=== PATIENT | female | born 1950 | race Hispanic/Latino ===

== ENCOUNTER 2018-03-30 01:07 | Inpatient (IN) | payer MEDICARE ==
[2018-03-30] MEDS ORDERED: NACL 0.9% 500 ML 500 ML IV ONE (01:21)
[2018-03-30] MEDS ORDERED: NACL 0.9% 1000 ML 2,000 ML ONE (01:22)
--- NOTE | 2018-03-30 01:32 | Emergency Department Report ---
- General Chief Complaint: Dyspnea/Respdistress Stated Complaint: SOB Time Seen by Provider: 03/30/18 01:19 Source: EMS Mode of arrival: Stretcher Limitations: Physical Limitation - History of Present Illness Initial Comments: 67-year-old female with history of CAD presents with URI symptoms 1 week. Patient reports productive cough, fever, shortness of breath. MD Complaint: fever, cough -: week(s) (1) Severity: moderate Consistency: constant Improves With: nothing Worsens With: nothing Associated Symptoms: fever, cough, shortness of breath, nausea - Related Data Home Medications Medication Instructions Recorded Confirmed Last Taken ALBUTEROL Inhaler (OR & NICU) 2 puff IH Q4H PRN 12/13/17 03/30/18 03/29/18 [ProAir HFA Inhaler] Aspirin [Adult Aspirin] 81 mg PO DAILY 12/13/17 03/30/18 03/29/18 81mg Metoprolol [Lopressor TAB] 50 mg PO BID 12/13/17 03/30/18 03/29/18 50mg Pantoprazole [Protonix TAB] 40 mg PO QDAY 12/13/17 03/30/18 03/29/18 40mg Topiramate [Topamax] 50 mg PO BID 12/13/17 03/30/18 03/29/18 50mg Venlafaxine HCl [Venlafaxine ER] 150 mg PO QDAY 12/13/17 03/30/18 Unknown buPROPion XL [Wellbutrin XL] 150 mg PO QAM 12/13/17 03/30/18 03/30/18 150mg hydrALAZINE [Apresoline TAB] 25 mg PO QID 12/13/17 03/30/18 Unknown lamoTRIgine [LaMICtal] 200 mg PO QAM 12/13/17 03/30/18 03/29/18 200mg lamoTRIgine [LaMICtal] 400 mg PO HS 12/13/17 03/30/18 Unknown Previous Rx's Medication Instructions Recorded Last Taken Type Clopidogrel [Plavix] 75 mg PO QDAY #30 tablet 12/17/17 03/29/18 Rx 75mg AtorvaSTATin [Lipitor] 40 mg PO QHS #30 tablet 03/05/18 03/29/18 Rx 40mg Fluticasone [Flonase] 100 mcg NS QDAY #1 bottle 03/05/18 03/29/18 Rx 100mcg ISOSORBIDE MONOnitrate [Imdur ER] 60 mg PO QDAY #30 tablet 03/05/18 03/29/18 Rx 60mg Nitroglycerin [Nitrostat] 0.4 mg SL Q5M PRN #30 tablet 03/05/18 Unknown Rx Ranolazine ER [Ranexa ER] 500 mg PO BID #60 tablet 03/05/18 03/29/18 Rx 500mg Allergies Allergy/AdvReac Type Severity Reaction Status Date / Time Sulfa (Sulfonamide Allergy Hives Verified 03/30/18 01:20 Antibiotics) ED Review of Systems ROS: Stated complaint: SOB Other details as noted in HPI Comment: All other systems reviewed and negative Constitutional: fever Respiratory: cough, shortness of breath, wheezing Gastrointestinal: nausea ED Past Medical Hx - Past Medical History Hx Hypertension: Yes Hx Heart Attack/AMI: Yes Hx Congestive Heart Failure: Yes Hx Diabetes: Yes (border line) Hx Deep Vein Thrombosis: No Hx GERD: Yes Hx Liver Disease: No Hx Sickle Cell Disease: No Hx Arthritis: No Hx Headaches / Migraines: Yes Hx Seizures: No Hx Kidney Stones: No Hx Asthma: Yes Hx COPD: No Hx Tuberculosis: No Hx Dementia: No Hx HIV: No - Surgical History Hx Coronary Stent: Yes Hx Open Heart Surgery: No Hx Pacemaker: No Hx Internal Defibrillator: No Hx Cholecystectomy: Yes Hx Appendectomy: Yes Hx Breast Surgery: No Additional Surgical History: appendectomy/ R-leg amputation/ knee replacement/ tonsillectomy/ appendectomy/ ankle reconstruction - Social History Smoking Status: Never Smoker Substance Use Type: None - Medications Home Medications: Home Medications Medication Instructions Recorded Confirmed Last Taken Type ALBUTEROL Inhaler (OR & NICU) 2 puff IH Q4H PRN 12/13/17 03/30/18 03/29/18 History [ProAir HFA Inhaler] Aspirin [Adult Aspirin] 81 mg PO DAILY 12/13/17 03/30/18 03/29/18 History 81mg Metoprolol [Lopressor TAB] 50 mg PO BID 12/13/17 03/30/18 03/29/18 History 50mg Pantoprazole [Protonix TAB] 40 mg PO QDAY 12/13/17 03/30/18 03/29/18 History 40mg Topiramate [Topamax] 50 mg PO BID 12/13/17 03/30/18 03/29/18 History 50mg Venlafaxine HCl [Venlafaxine ER] 150 mg PO QDAY 12/13/17 03/30/18 Unknown History buPROPion XL [Wellbutrin XL] 150 mg PO QAM 12/13/17 03/30/18 03/30/18 History 150mg hydrALAZINE [Apresoline TAB] 25 mg PO QID 12/13/17 03/30/18 Unknown History lamoTRIgine [LaMICtal] 200 mg PO QAM 12/13/17 03/30/18 03/29/18 History 200mg lamoTRIgine [LaMICtal] 400 mg PO HS 12/13/17 03/30/18 Unknown History Clopidogrel [Plavix] 75 mg PO QDAY #30 tablet 12/17/17 03/30/18 03/29/18 Rx 75mg AtorvaSTATin [Lipitor] 40 mg PO QHS #30 tablet 03/05/18 03/30/18 03/29/18 Rx 40mg Fluticasone [Flonase] 100 mcg NS QDAY #1 bottle 03/05/18 03/30/18 03/29/18 Rx 100mcg ISOSORBIDE MONOnitrate [Imdur ER] 60 mg PO QDAY #30 tablet 03/05/18 03/30/18 03/29/18 Rx 60mg Nitroglycerin [Nitrostat] 0.4 mg SL Q5M PRN #30 tablet 03/05/18 03/30/18 Unknown Rx Ranolazine ER [Ranexa ER] 500 mg PO BID #60 tablet 03/05/18 03/30/18 03/29/18 Rx 500mg ED Physical Exam - General Limitations: Physical Limitation General appearance: alert, in no apparent distress - Head Head exam: Present: atraumatic, normocephalic - Eye Eye exam: Present: normal appearance - ENT ENT exam: Present: mucous membranes moist - Neck Neck exam: Present: normal inspection - Respiratory Respiratory exam: Present: respiratory distress (mild), wheezes, other (tachypnea) - Cardiovascular Cardiovascular Exam: Present: regular rate, normal rhythm - GI/Abdominal GI/Abdominal exam: Present: soft. Absent: distended, tenderness - Extremities Exam Extremities exam: Present: other (right BKA present) - Neurological Exam Neurological exam: Present: alert, oriented X3 - Psychiatric Psychiatric exam: Present: normal affect, normal mood - Skin Skin exam: Present: warm, dry, intact, normal color ED Course Vital Signs 03/30/18 03/30/18 03/30/18 01:14 01:15 01:30 Temperature 100.3 F H Pulse Rate 79 62 Pulse Rate [ Bilateral Bases ] Respiratory 24 16 Rate Respiratory Rate [Bilateral Bases] Blood Pressure 153/61 153/61 157/62 O2 Sat by Pulse 95 94 93 Oximetry 03/30/18 03/30/18 03/30/18 01:32 01:33 01:45 Temperature Pulse Rate 61 62 Pulse Rate [ Bilateral Bases ] Respiratory 26 H Rate Respiratory Rate [Bilateral Bases] Blood Pressure 155/54 O2 Sat by Pulse 95 96 Oximetry 03/30/18 03/30/18 03/30/18 02:00 02:05 02:15 Temperature Pulse Rate 66 63 Pulse Rate [ 63 Bilateral Bases ] Respiratory 24 21 Rate Respiratory 15 Rate [Bilateral Bases] Blood Pressure 174/66 155/55 O2 Sat by Pulse 97 97 Oximetry 03/30/18 03/30/18 03/30/18 02:30 02:45 03:00 Temperature Pulse Rate 65 67 74 Pulse Rate [ Bilateral Bases ] Respiratory 26 H 27 H Rate Respiratory Rate [Bilateral Bases] Blood Pressure 164/63 180/57 169/57 O2 Sat by Pulse 98 98 99 Oximetry 03/30/18 03:16 Temperature Pulse Rate 69 Pulse Rate [ Bilateral Bases ] Respiratory 24 Rate Respiratory Rate [Bilateral Bases] Blood Pressure 151/78 O2 Sat by Pulse 94 Oximetry ED Medical Decision Making - Lab Data Result diagrams: 03/30/18 01:33 03/30/18 01:33 - EKG Data -: EKG Interpreted by Ms EKG shows normal: sinus rhythm, axis, intervals, QRS complexes, ST-T waves Rate: normal - EKG Data When compared to previous EKG there are: no significant change Interpretation: other (RBBB) - Radiology Data Radiology results: report reviewed, image reviewed - Medical Decision Making 67-year-old female with wheezing, hypoxia, fever. Since slightly elevated, however chest x-ray negative. Likely bronchitis. Levaquin given. Nebulizer treatment along with Solu-Medrol also given. The much improved. Will admit to hospitalist, Dr Silva. - Differential Diagnosis URI, bronchitis, pneumonia, pulm edema Critical care attestation.: If time is entered above; I have spent that time in minutes in the direct care of this critically ill patient, excluding procedure time. ED Disposition Clinical Impression: Bronchitis, Hypoxia Disposition: OP ADMIT IP TO THIS HOSP Is pt being admited?: Yes Condition: Stable Time of Disposition: 03:04
[2018-03-30] MEDS ORDERED: SOLU-Medrol IV ONE (01:34)
[2018-03-30] MEDS ORDERED: PROVENTIL IH ONE (01:34)
[2018-03-30] MEDS ORDERED: ATROVENT IH ONE (01:34)
--- NOTE | 2018-03-30 01:59 | XRay Report ---
FINAL REPORT EXAM: XR CHEST 1V AP HISTORY: possible Sepsis TECHNIQUE: AP portable view of the chest. PRIORS: 12/18/2017 FINDINGS: The cardiomediastinal silhouette appears normal. The lungs are clear. The bones and soft tissues are unremarkable. IMPRESSION: No evidence of acute cardiopulmonary disease.
[2018-03-30 02:05] LABS: INR 1.15 (0.87-1.13)
[2018-03-30 02:11] LABS: Basophils # (Auto) 0.1 K/mm3 (0.0-0.1); Basophils % (Auto) 1.2 % (0.0-1.8); Eosinophils # (Auto) 0.6 K/mm3 (0.0-0.4); Eosinophils % (Auto) 5.2 % (0.0-4.3); Lymphocytes # (Auto) 1.3 K/mm3 (1.2-5.4); Lymphocytes % (Auto) 10.3 % (13.4-35.0); Mean Corpuscular HGB Conc 29 % (30-34); Mean Corpuscular Volume 71 fl (79-97); Monocytes # (Auto) 0.9 K/mm3 (0.0-0.8); Monocytes % (Auto) 7.3 % (0.0-7.3); Platelet Count 367 K/mm3 (140-440); Red Blood Count 4.02 M/mm3 (3.65-5.03); Red Cell Distribution Width 19.7 % (13.2-15.2)
[2018-03-30 02:12] LABS: Hematocrit 28.6 % (30.3-42.9); Hemoglobin 8.3 gm/dl (10.1-14.3)
[2018-03-30 02:14] LABS: Albumin 3.4 g/dL (3.9-5); Calcium 9.1 mg/dL (8.4-10.2)
[2018-03-30 02:27] LABS: Bilirubin,Urine NEG (Negative); Blood,Urine NEG (Negative); Color,Urine Amber (Yellow); Mucus,Urine FEW /HPF
[2018-03-30] MEDS ORDERED: LEVAQUIN 750MG/150ML 750 MG/150 ML BAG IV ONE (02:49)
[2018-03-30] MEDS ORDERED: ZOFRAN IV ONE (03:02)
[2018-03-30] MEDS ORDERED: ZOFRAN ONE ×2 (03:06→06:17)
[2018-03-30] MEDS ORDERED: ULTRAM ONE (04:29)
[2018-03-30] MEDS ORDERED: ULTRAM PO STA (04:35)
[2018-03-30] MEDS ORDERED: D50W (25GM) Syringe IV PRN (04:45)
[2018-03-30] MEDS ORDERED: NITROSTAT SL PRN (04:47)
[2018-03-30] MEDS ORDERED: SOLU-Medrol ONE ×2 (06:17→06:20)
[2018-03-30] MEDS: SOLU-Medrol IV SCH ×3 (06:25→22:39)
[2018-03-30] MEDS: ZOFRAN IV PRN (06:25)
[2018-03-30 07:00] LABS: Creatine Kinase MB 2.6 ng/mL (0.0-4.0)
--- NOTE | 2018-03-30 08:10 | History and Physical Report ---
CHIEF COMPLAINT: Shortness of breath. OTHER COMPLAINTS: Include cough. HISTORY OF PRESENTING ILLNESS: The patient is a 67-year-old female with past history of CHF, presenting with shortness of breath going on for about 1 week associated with cough and wheezing. The patient stated that cough is productive of [id number] sputum. She has some history of chills and occasional fever. Also, the patient admitted to having shortness of breath, but denied history of chest pain. Denied history of nausea or vomiting and presented for evaluation. PAST MEDICAL HISTORY: Pertinent for hypertension, coronary artery disease, status post myocardial infarction, congestive heart failure, diabetes mellitus, gastroesophageal reflux disease, asthma, and migraine headaches. PAST SURGICAL HISTORY: Pertinent for coronary artery stent placement 10 times. Also, the patient has past surgical history of cholecystectomy, appendectomy, amputation of right leg, and tonsillectomy. FAMILY HISTORY: Noncontributory. SOCIAL HISTORY: The patient does not smoke, does not drink alcohol, and does not use illicit drugs. MEDICATIONS: The patient is on albuterol inhaler 2 puffs every 4 hours as needed for shortness of breath, aspirin 81 mg by mouth daily, metoprolol 50 mg by mouth twice daily, Protonix 40 mg by mouth daily, Topamax 50 mg by mouth twice daily, venlafaxine 150 mg by mouth daily, Wellbutrin 150 mg by mouth in the morning, hydralazine 25 mg by mouth 4 times daily, lamotrigine 200 mg by mouth every morning and 400 mg by mouth in the evening, Plavix 75 mg by mouth daily, Lipitor 40 mg at bedtime, fluticasone or Flonase 100 mcg nasally every day, isosorbide mononitrate 60 mg by mouth daily, nitroglycerin or Nitrostat 0.4 mg sublingual every 5 minutes as needed for chest pain, and ranolazine 500 mg by mouth twice daily. ALLERGIES: THE PATIENT IS ALLERGIC TO SULFA DRUGS. REVIEW OF SYSTEMS: CONSTITUTIONAL: There is fever and there are chills and no diaphoresis. HEENT: There is no headache or sore throat. CARDIOVASCULAR SYSTEM: There is no chest pain or orthopnea. RESPIRATORY SYSTEM: Shortness of breath present. Cough present. Wheezing present. GASTROINTESTINAL SYSTEM: There is no nausea or vomiting. No abdominal pain, diarrhea, or constipation. NEUROLOGICAL SYSTEM: There is no numbness, no dizziness, no altered mental status. MUSCULOSKELETAL SYSTEM: There is no joint pain or swelling. DERMATOLOGICAL SYSTEM: There is no skin rash or itching. GENITOURINARY SYSTEM: There is no dysuria, hematuria, or flank pain. Rest of system review is normal. PHYSICAL EXAMINATION: GENERAL: At the time of exam, the patient was found to be alert, oriented x 3, and in mild distress due to shortness of breath. VITAL SIGNS: At the initial time of presentation showed temperature of 100.3 degrees Fahrenheit, pulse of 79, respirations 24, blood pressure 153/61, O2 sat of 95% on room air. HEENT: Showed pupils to be equal, round, reactive to light and accommodation. Extraocular muscles were intact. NECK: Supple with no JVD or carotid bruit. CARDIOVASCULAR SYSTEM: Showed normal first and second heart sounds with no gallops or murmurs. RESPIRATORY SYSTEM: Showed good air entry on both sides of the lungs with inspiratory wheezing, but no use of accessory respiratory muscles. GASTROINTESTINAL SYSTEM: Showed abdomen to be full, soft, nontender with no organomegaly or rigidity. MUSCULOSKELETAL SYSTEM: Showed no joint swelling or tenderness and the right leg had amputation below the knee. DERMATOLOGICAL SYSTEM: Showed no skin rash. GENITOURINARY SYSTEM: Showed no costovertebral angle tenderness. PERTINENT LABORATORY AND IMAGING STUDIES: The patient had chest x-ray done that came back showing no acute cardiopulmonary lesion. CBC shows elevated white count of 12,200 with low hemoglobin of 8.3 and low hematocrit of 28.6 with low MCV of 71. CBC differential shows elevated eosinophil count of 5.2% and elevated segmented neutrophils of 76%. Coagulation studies show elevated PT of 15.1 with unremarkable INR of 1.15. The patient's venous blood gas show a low value of 7.31. Chemistry shows low sodium of 136 with normal potassium, normal chloride, and low CO2 of 19 with rest of chemistry showing elevated alkaline phosphatase of 214 and elevated brain natriuretic peptide level of 4219 and slightly decreased albumin level of 3.4. The patient's urinalysis was unremarkable. DIAGNOSES: 1. Acute bronchitis. 2. Congestive heart failure exacerbation. 3. Anemia. PLAN OF ACTION: 1. The patient will be admitted to telemetry. 2. The patient will have cardiac enzyme involving troponin, total CK and CK-MB check q. 6 hours x 2 more levels. 3. The patient will have 2D echo done in the morning. 4. The patient will be on albuterol nebulizer 2.5 mg every 6 hours as needed for shortness of breath and will be on IV Levaquin 750 mg daily. 5. The patient will be on IV Solu-Medrol 60 mg q. 8 hours. 6. The patient will be on Robitussin liquid 200 mg every 4 hours as needed for cough. 7. The patient will be on p.r.n. medications like Tylenol 650 mg every 4 hours orally for fever and headache and will also be on IV Zofran 4 mg every 8 hours as needed for nausea and vomiting. 8. The patient will be on Lasix 40 mg IV daily for treatment of CHF exacerbation. 9. The patient will be on heparin 5000 units subcutaneous q. 12 hours for DVT prophylaxis and will be on her home medications as shown in the medication reconciliation section. 10. The patient will be on oxygen by nasal cannula at 2 liters per minute. 11. The patient will be on Accu-Cheks a.c. and at bedtime followed by low-dose sliding scale using Regular insulin covering and the patient's diet will be consistent carbohydrate, 2 g sodium diet. JOB# [id number] OCN/NTS
[2018-03-30 08:29] LABS: Chol/HDL Ratio 2.89 %
[2018-03-30] MEDS: WELLBUTRIN XL PO SCH (10:03)
[2018-03-30] MEDS: LaMICtal PO SCH ×2 (10:03→22:39)
[2018-03-30] MEDS: PLAVIX PO SCH (10:03)
[2018-03-30] MEDS: PROTONIX PO SCH (10:04)
[2018-03-30] MEDS: TOPAMAX PO SCH ×2 (10:04→22:38)
[2018-03-30] MEDS: LOPRESSOR PO SCH ×2 (10:04→17:48)
[2018-03-30] MEDS: HALFPRIN EC PO SCH (10:05)
[2018-03-30] MEDS: HEPARIN SUB-Q SCH ×2 (10:05→22:40)
[2018-03-30] MEDS: IMDUR PO SCH (10:05)
[2018-03-30] MEDS: APRESOLINE PO SCH ×3 (10:05→17:48)
[2018-03-30] MEDS: LASIX IV SCH (10:05)
[2018-03-30] MEDS: HumuLIN R SUB-Q SCH ×4 (10:06→22:38)
[2018-03-30] MEDS: LEVAQUIN 750MG/150ML 750 MG/150 ML BAG IV SCH (10:06)
--- NOTE | 2018-03-30 12:16 | Event Note ---
Date: 03/30/18 Patient seen and examined and medical records reviewed Worsening shortness of breath, acute bronchitis, possible congestive heart failure Follow-up echocardiogram and ejection fraction, agree with the current management
[2018-03-30] MEDS: EFFEXOR XR PO SCH (13:03)
[2018-03-30] MEDS: RANEXA ER PO SCH ×2 (13:03→22:39)
[2018-03-30 14:38] LABS: Creatine Kinase MB 5.3 ng/mL (0.0-4.0)
[2018-03-30] MEDS: ROBITUSSIN PO PRN (18:02)
[2018-03-31] MEDS: APRESOLINE PO SCH ×5 (00:15→22:57)
[2018-03-31 03:53] LABS: BUN/Creatinine Ratio 19; Blood Urea Nitrogen 17 mg/dL (7-17); Calcium 9.5 mg/dL (8.4-10.2); Hemolysis Index 2
[2018-03-31 04:11] LABS: Mean Corpuscular HGB Conc 30 % (30-34); Platelet Count 395 K/mm3 (140-440); Red Blood Count 3.98 M/mm3 (3.65-5.03); Red Cell Distribution Width 19.6 % (13.2-15.2)
[2018-03-31 04:16] LABS: Hematocrit 27.6 % (30.3-42.9); Hemoglobin 8.2 gm/dl (10.1-14.3); Mean Corpuscular Volume 69 fl (79-97)
[2018-03-31] MEDS: SOLU-Medrol IV SCH ×3 (06:01→22:57)
[2018-03-31] MEDS: ROBITUSSIN PO PRN ×3 (06:07→16:42)
[2018-03-31 06:10] LABS: Basophils % (Manual) 0 % (0.0-1.8); Eosinophils % (Manual) 0 % (0.0-4.3); Total Cells Counted 100
[2018-03-31 06:11] LABS: Anisocytosis 1+; Hypochromasia 1+; Large Platelets Few
[2018-03-31] MEDS: HumuLIN R SUB-Q SCH ×4 (08:47→22:57)
[2018-03-31] MEDS: LASIX IV SCH (08:47)
--- NOTE | 2018-03-31 09:36 | Progress Note ---
Assessment and Plan Assessment and plan: 67-year-old female patient with multiple medical problems including multivessel coronary artery disease status post PCI stents, hypertension congestive heart failure diabetes was admitted through emergency room yesterday with worsening shortness of breath and upper respiratory symptoms, evaluation including acute bronchitis, on appropriate management,Today c/o chest pain,will consult cardiology --Acute bronchitis; upper respiratory symptoms Bronchodilators, empiric antibiotics, cough medicine and supportive care antihistamines, --History of multivessel coronary artery disease status post PCI; Continue current cardiac medications, patient c/o chest pain today Cardiology consult requested --Anemia; chronic, closely monitor H&H and transfuse as needed --Dyslipidemia continue statin; --GERD; Protonix --History of seizure disorder; seizure precautions, continue antiepileptic medications --History of depression; stable on antidepression medications --DVT prophylaxis; Lovenox Disposition; follow clinically, improvement consult pulmonary Discharge in 1-2 days if stable History Interval history: Patient seen and examined medical records reviewed Admitted with upper respiratory symptoms and acute bronchitis Patient feels slightly better still has cough and congestion Complaints of chest pain Vital signs noted Hospitalist Physical - Constitutional Vitals: Temp Pulse Resp BP Pulse Ox 97.8 F 68 18 121/45 97 03/31/18 05:53 03/31/18 05:53 03/31/18 05:53 03/31/18 05:53 03/31/18 09:21 General appearance: Present: mild distress, well-nourished - EENT Eyes: Present: PERRL, EOM intact - Neck Neck: Present: supple, normal ROM - Respiratory Respiratory effort: normal Respiratory: bilateral: diminished, rhonchi, negative: rales, wheezing - Cardiovascular Rhythm: regular Heart Sounds: Present: S1 & S2 - Extremities Extremities: no ischemia, No edema - Abdominal General gastrointestinal: soft, non-tender, non-distended, normal bowel sounds - Integumentary Integumentary: Present: clear, warm - Psychiatric Psychiatric: appropriate mood/affect, cooperative - Neurologic Neurologic: CNII-XII intact, moves all extremities Results - Labs CBC & Chem 7: 03/31/18 02:42 03/31/18 02:42 Labs: Laboratory Last Values WBC 15.2 K/mm3 (4.5-11.0) H 03/31/18 02:42 RBC 3.98 M/mm3 (3.65-5.03) 03/31/18 02:42 Hgb 8.2 gm/dl (10.1-14.3) L 03/31/18 02:42 Hct 27.6 % (30.3-42.9) L 03/31/18 02:42 MCV 69 fl (79-97) L 03/31/18 02:42 MCH 21 pg (28-32) L 03/31/18 02:42 MCHC 30 % (30-34) 03/31/18 02:42 RDW 19.6 % (13.2-15.2) H 03/31/18 02:42 Plt Count 395 K/mm3 (140-440) 03/31/18 02:42 Lymph % (Auto) Printer Floor Covering Assistant 03/31/18 02:42 Saunders % (Auto) Printer Floor Covering Assistant 03/31/18 02:42 Eos % (Auto) Printer Floor Covering Assistant 03/31/18 02:42 Baso % (Auto) Printer Floor Covering Assistant 03/31/18 02:42 Lymph # Printer Floor Covering Assistant 03/31/18 02:42 Saunders # Printer Floor Covering Assistant 03/31/18 02:42 Eos # Printer Floor Covering Assistant 03/31/18 02:42 Baso # Printer Floor Covering Assistant 03/31/18 02:42 Add Manual Diff Complete 03/31/18 02:42 Total Counted 100 03/31/18 02:42 Seg Neutrophils % Printer Floor Covering Assistant 03/31/18 02:42 Seg Neuts % (Manual) 95.0 % (40.0-70.0) H 03/31/18 02:42 Band Neutrophils % 0 % 03/31/18 02:42 Lymphocytes % (Manual) 3.0 % (13.4-35.0) L 03/31/18 02:42 Reactive Lymphs % (Man) 0 % 03/31/18 02:42 Monocytes % (Manual) 2.0 % (0.0-7.3) 03/31/18 02:42 Eosinophils % (Manual) 0 % (0.0-4.3) 03/31/18 02:42 Basophils % (Manual) 0 % (0.0-1.8) 03/31/18 02:42 Metamyelocytes % 0 % 03/31/18 02:42 Myelocytes % 0 % 03/31/18 02:42 Promyelocytes % 0 % 03/31/18 02:42 Blast Cells % 0 % 03/31/18 02:42 Nucleated RBC % Not Reportable 03/31/18 02:42 Seg Neutrophils # Printer Floor Covering Assistant 03/31/18 02:42 Seg Neutrophils # Man 14.4 K/mm3 (1.8-7.7) H 03/31/18 02:42 Band Neutrophils # 0.0 K/mm3 03/31/18 02:42 Lymphocytes # (Manual) 0.5 K/mm3 (1.2-5.4) L 03/31/18 02:42 Abs React Lymphs (Man) 0.0 K/mm3 03/31/18 02:42 Monocytes # (Manual) 0.3 K/mm3 (0.0-0.8) 03/31/18 02:42 Eosinophils # (Manual) 0.0 K/mm3 (0.0-0.4) 03/31/18 02:42 Basophils # (Manual) 0.0 K/mm3 (0.0-0.1) 03/31/18 02:42 Metamyelocytes # 0.0 K/mm3 03/31/18 02:42 Myelocytes # 0.0 K/mm3 03/31/18 02:42 Promyelocytes # 0.0 K/mm3 03/31/18 02:42 Blast Cells # 0.0 K/mm3 03/31/18 02:42 WBC Morphology Not Reportable 03/31/18 02:42 Hypersegmented Neuts Not Reportable 03/31/18 02:42 Hyposegmented Neuts Not Reportable 03/31/18 02:42 Hypogranular Neuts Not Reportable 03/31/18 02:42 Smudge Cells Not Reportable 03/31/18 02:42 Toxic Granulation Not Reportable 03/31/18 02:42 Toxic Vacuolation Not Reportable 03/31/18 02:42 Dohle Bodies Not Reportable 03/31/18 02:42 Pelger-Huet Anomaly Not Reportable 03/31/18 02:42 Da Rods Not Reportable 03/31/18 02:42 Platelet Estimate Appears normal 03/31/18 02:42 Clumped Platelets Not Reportable 03/31/18 02:42 Plt Clumps, EDTA Not Reportable 03/31/18 02:42 Large Platelets Few 03/31/18 02:42 Giant Platelets Not Reportable 03/31/18 02:42 Platelet Satelliting Not Reportable 03/31/18 02:42 Plt Morphology Comment Not Reportable 03/31/18 02:42 RBC Morphology Not Reportable 03/31/18 02:42 Dimorphic RBCs Not Reportable 03/31/18 02:42 Polychromasia Few 03/31/18 02:42 Hypochromasia 1+ 03/31/18 02:42 Poikilocytosis Not Reportable 03/31/18 02:42 Anisocytosis 1+ 03/31/18 02:42 Microcytosis Not Reportable 03/31/18 02:42 Macrocytosis Not Reportable 03/31/18 02:42 Spherocytes Not Reportable 03/31/18 02:42 Pappenheimer Bodies Not Reportable 03/31/18 02:42 Sickle Cells Not Reportable 03/31/18 02:42 Target Cells Not Reportable 03/31/18 02:42 Tear Drop Cells Not Reportable 03/31/18 02:42 Ovalocytes Not Reportable 03/31/18 02:42 Helmet Cells Not Reportable 03/31/18 02:42 [place] Bodies Not Reportable 03/31/18 02:42 [place] Rings Not Reportable 03/31/18 02:42 Urvashi Cells Not Reportable 03/31/18 02:42 Bite Cells Not Reportable 03/31/18 02:42 Crenated Cell Not Reportable 03/31/18 02:42 Elliptocytes Not Reportable 03/31/18 02:42 Acanthocytes (Spur) Not Reportable 03/31/18 02:42 Rouleaux Not Reportable 03/31/18 02:42 Hemoglobin C Crystals Not Reportable 03/31/18 02:42 Schistocytes Not Reportable 03/31/18 02:42 Malaria parasites Not Reportable 03/31/18 02:42 Aashish Bodies Not Reportable 03/31/18 02:42 Hem Pathologist Commnt No 03/31/18 02:42 PT 15.1 Sec. (12.2-14.9) H 03/30/18 01:33 INR 1.15 (0.87-1.13) H 03/30/18 01:33 VBG pH 7.313 (7.320-7.420) L 03/30/18 01:33 Sodium 136 mmol/L (137-145) L 03/31/18 02:42 Potassium 4.4 mmol/L (3.6-5.0) 03/31/18 02:42 Chloride 106.8 mmol/L (98-107) 03/31/18 02:42 Carbon Dioxide 20 mmol/L (22-30) L 03/31/18 02:42 Anion Gap 14 mmol/L 03/31/18 02:42 BUN 17 mg/dL (7-17) 03/31/18 02:42 Creatinine 0.9 mg/dL (0.7-1.2) 03/31/18 02:42 Estimated GFR > 60 ml/min 03/31/18 02:42 BUN/Creatinine Ratio 19 % 03/31/18 02:42 Glucose 142 mg/dL (65-100) H 03/31/18 02:42 POC Glucose 178 (70-105) H 03/31/18 08:21 Lactic Acid 1.90 mmol/L (0.7-2.0) 03/30/18 05:51 Calcium 9.5 mg/dL (8.4-10.2) 03/31/18 02:42 Total Bilirubin 0.20 mg/dL (0.1-1.2) 03/30/18 01:33 AST 9 units/L (5-40) 03/30/18 01:33 ALT 6 units/L (7-56) L 03/30/18 01:33 Alkaline Phosphatase 214 units/L (35-129) H 03/30/18 01:33 Total Creatine Kinase 144 units/L (30-135) H 03/30/18 12:31 CK-MB (CK-2) 5.3 ng/mL (0.0-4.0) H 03/30/18 12:31 CK-MB (CK-2) Rel Index 3.6 (0-4) 03/30/18 12:31 Troponin T 0.057 ng/mL (0.00-0.029) H D 03/30/18 12:31 NT-Pro-B Natriuret Pep 4219 pg/mL (0-900) H 03/30/18 01:35 Total Protein 7.0 g/dL (6.3-8.2) 03/30/18 01:33 Albumin 3.4 g/dL (3.9-5) L 03/30/18 01:33 Albumin/Globulin Ratio 0.9 % 03/30/18 01:33 Triglycerides 97 mg/dL (2-149) 03/30/18 05:51 Cholesterol 133 mg/dL (50-199) 03/30/18 05:51 LDL Cholesterol Direct 80 mg/dL (50-130) 03/30/18 05:51 HDL Cholesterol 46 mg/dL (40-59) 03/30/18 05:51 Cholesterol/HDL Ratio 2.89 % 03/30/18 05:51 Urine Color Kitty (Yellow) 03/30/18 02:10 Urine Turbidity Clear (Clear) 03/30/18 02:10 Urine pH 5.0 (5.0-7.0) 03/30/18 02:10 Ur Specific [place] 1.024 (1.003-1.030) 03/30/18 02:10 Urine Protein 30 mg/dl mg/dL (Negative) 03/30/18 02:10 Urine Glucose (UA) Neg mg/dL (Negative) 03/30/18 02:10 Urine Ketones Neg mg/dL (Negative) 03/30/18 02:10 Urine Blood Neg (Negative) 03/30/18 02:10 Urine Nitrite Neg (Negative) 03/30/18 02:10 Urine Bilirubin Neg (Negative) 03/30/18 02:10 Urine Urobilinogen 2.0 mg/dL (<2.0) 03/30/18 02:10 Ur Leukocyte Esterase Neg (Negative) 03/30/18 02:10 Urine WBC (Auto) 2.0 /HPF (0.0-6.0) 03/30/18 02:10 Urine RBC (Auto) 2.0 /HPF (0.0-6.0) 03/30/18 02:10 Urine Mucus Few /HPF 03/30/18 02:10
[2018-03-31] MEDS: LOPRESSOR PO SCH ×2 (10:17→16:59)
[2018-03-31] MEDS: LEVAQUIN 750MG/150ML 750 MG/150 ML BAG IV SCH (10:17)
[2018-03-31] MEDS: EFFEXOR XR PO SCH (10:18)
[2018-03-31] MEDS: TYLENOL PO PRN (10:18)
[2018-03-31] MEDS: LaMICtal PO SCH ×2 (10:19→22:58)
[2018-03-31] MEDS: IMDUR PO SCH (10:19)
[2018-03-31] MEDS: RANEXA ER PO SCH ×2 (10:21→22:57)
[2018-03-31] MEDS: HALFPRIN EC PO SCH (10:21)
[2018-03-31] MEDS: PLAVIX PO SCH (10:21)
[2018-03-31] MEDS: PROTONIX PO SCH (10:21)
[2018-03-31] MEDS: HEPARIN SUB-Q SCH ×2 (10:21→23:04)
[2018-03-31] MEDS: WELLBUTRIN XL PO SCH (10:21)
[2018-03-31] MEDS: TOPAMAX PO SCH ×2 (10:34→22:57)
--- NOTE | 2018-03-31 14:23 | Consultation ---
History of Present Illness Consult date: 03/31/18 Consult reason: shortness of breath History of present illness: 67-year-old woman with multivessel coronary artery disease status post two- vessel coronary stenting in the past several months, on medical therapy for chronic stable angina pectoris. Presents to the hospital now with fever and cough and hoarseness. There was musculoskeletal type chest pain following repeated bouts of coughing. In the emergency room, temperature was 100.3, and white count was 15,000. Chest x-ray is negative for infiltrates or interstitial edema. EKG was a sinus rhythm, right bundle branch block, no acute ST or T-wave changes. Past History Past Medical History: CAD Past Surgical History: PTCA Medications and Allergies Allergies Allergy/AdvReac Type Severity Reaction Status Date / Time Sulfa (Sulfonamide Allergy Hives Verified 03/30/18 01:20 Antibiotics) Home Medications Medication Instructions Recorded Confirmed Last Taken Type ALBUTEROL Inhaler (OR & NICU) 2 puff IH Q4H PRN 12/13/17 03/30/18 03/29/18 History [ProAir HFA Inhaler] Aspirin [Adult Aspirin] 81 mg PO DAILY 12/13/17 03/30/18 03/29/18 History 81mg Metoprolol [Lopressor TAB] 50 mg PO BID 12/13/17 03/30/18 03/29/18 History 50mg Pantoprazole [Protonix TAB] 40 mg PO QDAY 12/13/17 03/30/18 03/29/18 History 40mg Topiramate [Topamax] 50 mg PO BID 12/13/17 03/30/18 03/29/18 History 50mg Venlafaxine HCl [Venlafaxine ER] 150 mg PO QDAY 12/13/17 03/30/18 Unknown His tory buPROPion XL [Wellbutrin XL] 150 mg PO QAM 12/13/17 03/30/18 03/30/18 History 150mg hydrALAZINE [Apresoline TAB] 25 mg PO QID 12/13/17 03/30/18 Unknown History lamoTRIgine [LaMICtal] 200 mg PO QAM 12/13/17 03/30/18 03/29/18 History 200mg lamoTRIgine [LaMICtal] 400 mg PO HS 12/13/17 03/30/18 Unknown History Clopidogrel [Plavix] 75 mg PO QDAY #30 tablet 12/17/17 03/30/18 03/29/18 Rx 75mg AtorvaSTATin [Lipitor] 40 mg PO QHS #30 tablet 03/05/18 03/30/18 03/29/18 Rx 40mg Fluticasone [Flonase] 100 mcg NS QDAY #1 bottle 03/05/18 03/30/18 03/29/18 Rx 100mcg ISOSORBIDE MONOnitrate [Imdur ER] 60 mg PO QDAY #30 tablet 03/05/18 03/30/18 03/29/18 Rx 60mg Nitroglycerin [Nitrostat] 0.4 mg SL Q5M PRN #30 tablet 03/05/18 03/30/18 Unknown Rx Ranolazine ER [Ranexa ER] 500 mg PO BID #60 tablet 03/05/18 03/30/18 03/29/18 Rx 500mg Active Meds: Active Medications Acetaminophen (Tylenol) 650 mg PO Q4H PRN PRN Reason: Fever >101 Last Admin: 03/31/18 10:18 Dose: 650 mg Documented by: Albuterol (Proventil) 2.5 mg IH Q6HRT PRN PRN Reason: Shortness Of Breath Aspirin (Halfprin Ec) 81 mg PO DAILY [facility] Last Admin: 03/31/18 10:21 Dose: 81 mg Documented by: Atorvastatin Calcium (Lipitor) 40 mg PO QHS [facility] Last Admin: 03/30/18 22:39 Dose: 40 mg Documented by: Bupropion HCl (Wellbutrin Xl) 150 mg PO QAM [facility] Last Admin: 03/31/18 10:21 Dose: 150 mg Documented by: Clopidogrel Bisulfate (Plavix) 75 mg PO QDAY [facility] Last Admin: 03/31/18 10:21 Dose: 75 mg Documented by: Dextrose (D50w (25gm) Syringe) 50 ml IV PRN PRN PRN Reason: Hypoglycemia Furosemide (Lasix) 40 mg IV QDAY@0800 [facility] Last Admin: 03/31/18 08:47 Dose: 40 mg Documented by: Guaifenesin (Robitussin) 200 mg PO Q4H PRN PRN Reason: Cough Last Admin: 03/31/18 10:17 Dose: 200 mg Documented by: Heparin Sodium (Porcine) (Heparin) 5,000 unit SUB-Q Q12HR [facility] Last Admin: 03/31/18 10:21 Dose: 5,000 unit Documented by: Hydralazine HCl (Apresoline) 25 mg PO QID [facility] Last Admin: 03/31/18 13:53 Dose: 25 mg Documented by: Insulin Human Regular (Humulin R) 0 units SUB-Q AC [facility]; Protocol Last Admin: 03/31/18 13:52 Dose: 2 units Documented by: Insulin Human Regular (Humulin R) 0 units SUB-Q QHS [facility]; Protocol Last Admin: 03/30/18 22:38 Dose: 1 units Documented by: Isosorbide Mononitrate (Imdur) 60 mg PO QDAY [facility] Last Admin: 03/31/18 10:19 Dose: 60 mg Documented by: Lamotrigine (Lamictal) 200 mg PO QAM [facility] Last Admin: 03/31/18 10:19 Dose: 200 mg Documented by: Lamotrigine (Lamictal) 400 mg PO HS [facility] Last Admin: 03/30/18 22:39 Dose: 400 mg Documented by: Levofloxacin (Levaquin) 750 mg PO DAILY [facility] Loratadine/Pseudoephedrine Sulfate (Claritin-D 24hr) 1 each PO Q24HR [facility] Methylprednisolone Sodium Succinate (Solu-Medrol) 60 mg IV Q8HR [facility] Last Admin: 03/31/18 13:53 Dose: 60 mg Documented by: Metoprolol Tartrate (Lopressor) 50 mg PO BID@0800,1700 [facility] Last Admin: 03/31/18 10:17 Dose: 50 mg Documented by: Nitroglycerin (Nitrostat) 0.4 mg SL Q5M PRN PRN Reason: Chest Pain Ondansetron HCl (Zofran) 4 mg IV Q8H PRN PRN Reason: Nausea And Vomiting Last Admin: 03/30/18 06:25 Dose: 4 mg Documented by: Pantoprazole Sodium (Protonix) 40 mg PO QDAY [facility] Last Admin: 03/31/18 10:21 Dose: 40 mg Documented by: Ranolazine (Ranexa Er) 500 mg PO BID [facility] Last Admin: 03/31/18 10:21 Dose: 500 mg Documented by: Topiramate (Topamax) 50 mg PO BID [facility] Last Admin: 03/31/18 10:34 Dose: 50 mg Documented by: Venlafaxine HCl (Effexor Xr) 150 mg PO QDAY [facility] Last Admin: 03/31/18 10:18 Dose: 150 mg Documented by: Review of Systems Cardiovascular: chest pain, no orthopnea, no palpitations, no rapid/irregular heart beat, no edema, no syncope, no lightheadedness, no shortness of breath Respiratory: cough Physical Examination Vital Signs Temp Pulse Resp BP Pulse Ox 100.3 F H 79 24 153/61 92 03/30/18 01:14 03/30/18 01:14 03/30/18 01:14 03/30/18 01:14 03/30/18 01:14 General appearance: no acute distress HEENT: Positive: PERRL Neck: Positive: neck supple Cardiac: Positive: Reg Rate and Rhythm Lungs: Positive: Decreased Breath Sounds Neuro: Positive: Grossly Intact Abdomen: Positive: Soft Female genitourinary: deferred Skin: Positive: Clear Extremities: Absent: edema Results 03/31/18 02:42 03/31/18 02:42 Cardiac Enzymes 03/30/18 Range/Units 12:31 CK-MB (CK-2) 5.3 H (0.0-4.0) ng/mL CBC 03/31/18 Range/Units 02:42 WBC 15.2 H (4.5-11.0) K/mm3 RBC 3.98 (3.65-5.03) M/mm3 Hgb 8.2 L (10.1-14.3) gm/dl Hct 27.6 L (30.3-42.9) % Plt Count 395 (140-440) K/mm3 Lymph # [employer] Dyer # [employer] Eos # [employer] Baso # [employer] Comprehensive Metabolic Panel 03/31/18 Range/Units 02:42 Sodium 136 L (137-145) mmol/L Potassium 4.4 (3.6-5.0) mmol/L Chloride 106.8 (98-107) mmol/L Carbon Dioxide 20 L (22-30) mmol/L BUN 17 (7-17) mg/dL Creatinine 0.9 (0.7-1.2) mg/dL Glucose 142 H (65-100) mg/dL Calcium 9.5 (8.4-10.2) mg/dL EKG interpretations - Telemetry EKG Rhythm: Sinus Rhythm (with right bundle branch block) Assessment and Plan - Patient Problems (1) Chest pain Current Visit: No Status: Acute Plan to address problem: Patient has musculoskeletal chest pain which occurred after repeated bouts of coughing. Primary clinical problem is acute bronchitis with fever, elevated white count and hoarseness of voice. We will defer to internal medicine for appropriate antibiotic therapy. (2) Coronary artery disease Current Visit: Yes Status: Acute Plan to address problem: Patient has multivessel coronary artery disease, on medical therapy including dual oral antiplatelet therapy following two-vessel coronary intervention in the past several months.
[2018-03-31] MEDS: CLARITIN-D 24HR PO SCH (16:39)
[2018-04-01] MEDS: ROBITUSSIN PO PRN ×2 (03:03→09:33)
[2018-04-01] MEDS: SOLU-Medrol IV SCH ×3 (05:52→21:56)
[2018-04-01 06:13] LABS: Mean Corpuscular HGB Conc 29 % (30-34); Platelet Count 482 K/mm3 (140-440); Red Blood Count 4.03 M/mm3 (3.65-5.03)
[2018-04-01 06:14] LABS: Hematocrit 27.8 % (30.3-42.9); Hemoglobin 8.2 gm/dl (10.1-14.3); Mean Corpuscular Volume 69 fl (79-97); Red Cell Distribution Width 20.3 % (13.2-15.2)
[2018-04-01 06:51] LABS: Calcium 9.3 mg/dL (8.4-10.2)
[2018-04-01 08:29] LABS: Anisocytosis 1+; Basophils % (Manual) 0 % (0.0-1.8); Eosinophils % (Manual) 0 % (0.0-4.3); Total Cells Counted 100
[2018-04-01 08:30] LABS: Hypochromasia 2+; Platelet Estimate Consistent w Auto
[2018-04-01] MEDS: LASIX IV SCH (09:34)
[2018-04-01] MEDS: HEPARIN SUB-Q SCH ×2 (09:34→21:55)
[2018-04-01] MEDS: IMDUR PO SCH (09:34)
[2018-04-01] MEDS: HALFPRIN EC PO SCH (09:34)
[2018-04-01] MEDS: LOPRESSOR PO SCH ×2 (09:35→17:07)
[2018-04-01] MEDS: PROTONIX PO SCH (09:35)
[2018-04-01] MEDS: LaMICtal PO SCH ×2 (09:35→21:56)
[2018-04-01] MEDS: APRESOLINE PO SCH ×4 (09:35→21:59)
[2018-04-01] MEDS: EFFEXOR XR PO SCH (09:36)
[2018-04-01] MEDS: PLAVIX PO SCH (09:36)
[2018-04-01] MEDS: RANEXA ER PO SCH ×2 (09:36→22:10)
[2018-04-01] MEDS: WELLBUTRIN XL PO SCH (09:37)
[2018-04-01] MEDS: HumuLIN R SUB-Q SCH ×4 (09:38→21:58)
[2018-04-01] MEDS ORDERED: LEVAQUIN PO SCH (10:00)
[2018-04-01] MEDS: TOPAMAX PO SCH ×2 (11:15→21:55)
--- NOTE | 2018-04-01 12:06 | Progress Note ---
Assessment and Plan - Patient Problems (1) Chest pain Current Visit: No Status: Acute Plan to address problem: Patient has musculoskeletal chest pain which occurred after repeated bouts of coughing. Primary clinical problem is acute bronchitis with fever, elevated white count and hoarseness of voice. We will defer to internal medicine for appropriate antibiotic therapy. (2) Coronary artery disease Current Visit: Yes Status: Acute Plan to address problem: Patient has multivessel coronary artery disease, on medical therapy including dual oral antiplatelet therapy following two-vessel coronary intervention in recent months. Subjective Date of service: 04/01/18 Interval history: Patient looks and feels better, no chest pain, cough and shortness of breath improving. On exam, she has rhonchi localized to the right lung base. Objective Vital Signs Temp Pulse Resp Resp Resp Resp BP 04/01/18 09:35 122/47 04/01/18 09:34 122/47 04/01/18 08:43 04/01/18 04:46 97.7 F 70 18 135/59 03/31/18 23:01 97.8 F 69 18 136/54 03/31/18 22:57 68 136/54 03/31/18 22:00 18 18 18 18 03/31/18 19:10 03/31/18 17:00 128/60 03/31/18 16:59 128/60 03/31/18 16:31 97.4 F L 81 22 107/53 03/31/18 13:53 135/57 Pulse Ox 04/01/18 09:35 04/01/18 09:34 04/01/18 08:43 98 04/01/18 04:46 98 03/31/18 23:01 99 03/31/18 22:57 03/31/18 22:00 99 03/31/18 19:10 98 03/31/18 17:00 03/31/18 16:59 03/31/18 16:31 97 03/31/18 13:53 - Physical Examination General: No Apparent Distress HEENT: Positive: PERRL Neck: Positive: neck supple Cardiac: Positive: Reg Rate and Rhythm Lungs: Positive: Rhonchi Neuro: Positive: Grossly Intact Abdomen: Positive: Soft Skin: Positive: Clear Extremities: Absent: edema - Labs and Meds CBC 04/01/18 Range/Units 05:21 WBC 16.0 H (4.5-11.0) K/mm3 RBC 4.03 (3.65-5.03) M/mm3 Hgb 8.2 L (10.1-14.3) gm/dl Hct 27.8 L (30.3-42.9) % Plt Count 482 H (140-440) K/mm3 Comprehensive Metabolic Panel 04/01/18 Range/Units 05:21 Sodium 138 (137-145) mmol/L Potassium 4.4 (3.6-5.0) mmol/L Chloride 103.0 (98-107) mmol/L Carbon Dioxide 23 (22-30) mmol/L BUN 24 H (7-17) mg/dL Creatinine 1.2 (0.7-1.2) mg/dL Glucose 142 H (65-100) mg/dL Calcium 9.3 (8.4-10.2) mg/dL
[2018-04-01] MEDS: CLARITIN-D 24HR PO SCH (13:27)
[2018-04-01] MEDS: ROBITUSSIN AC PO PRN ×2 (13:27→21:55)
--- NOTE | 2018-04-01 15:19 | Progress Note ---
Assessment and Plan Assessment and plan: 67-year-old female patient with multiple medical problems including multivessel coronary artery disease status post PCI stents, hypertension congestive heart failure diabetes was admitted through emergency room yesterday with worsening shortness of breath and upper respiratory symptoms, evaluation including acute bronchitis, on appropriate management,Today c/o chest pain,will consult cardiology -Acute hypoxic respiratory failure: O2 new, try to wean -Acute bronchitis; upper respiratory symptoms: Bronchodilators, empiric antibiotics, cough medicine and supportive care, antihistamines, -History of multivessel coronary artery disease status post PCI; Continue current cardiac medications, patient c/o chest pain today, Cardiology consult requested -Anemia; chronic, closely monitor H&H and transfuse as needed -Dyslipidemia continue statin; -GERD; Protonix -History of seizure disorder; seizure precautions, continue antiepileptic medications -History of depression; stable on antidepression medications -DVT prophylaxis; Lovenox Disposition; follow clinically, improvement consult pulmonary Discharge in 1 days if stable History Interval history: Patient was seen and examined. Follow-up on current diagnosis of sob from Bronchitis. Overnight uneventful. Patient denies any chest pain, nausea/vomiting or severe headaches. Imaging, nursing note, chart, labs and old chart reviewed. Discussed with patient. Hospitalist Physical - Physical exam Narrative exam: Gen: WDWN, NAD, Awake, Alert, Orientated HEENT: NCAT, EOMI, PERRL, OP Clear Neck: supple, no adenopathy, no thyromegaly, no JVD CVS/Heart: RRR, normal S1S2, pulses present bilaterally Chest/Lungs: diminished bs bilaterally, Symmetrical chest expansion, good air entry bilaterally GI/Abdomen: soft, NTND, good bowel sounds, no guarding or rebound /Bladder: no suprapubic tenderness, no CVA or paraspinal tenderness Extermity/Skin: no c/c/e, no obvious rash MSK: FROM x 4 Neuro: CN 2-12 grossly intact, no new focal deficits Psych: calm - Constitutional Vitals: Temp Pulse Resp BP Pulse Ox 98.5 F 68 22 150/63 97 04/01/18 11:17 04/01/18 11:17 04/01/18 11:17 04/01/18 11:17 04/01/18 11:17 General appearance: Present: well-nourished Results - Labs CBC & Chem 7: 04/01/18 05:21 04/01/18 05:21 Labs: Laboratory Last Values WBC 16.0 K/mm3 (4.5-11.0) H 04/01/18 05:21 RBC 4.03 M/mm3 (3.65-5.03) 04/01/18 05:21 Hgb 8.2 gm/dl (10.1-14.3) L 04/01/18 05:21 Hct 27.8 % (30.3-42.9) L 04/01/18 05:21 MCV 69 fl (79-97) L 04/01/18 05:21 MCH 20 pg (28-32) L 04/01/18 05:21 MCHC 29 % (30-34) L 04/01/18 05:21 RDW 20.3 % (13.2-15.2) H 04/01/18 05:21 Plt Count 482 K/mm3 (140-440) H 04/01/18 05:21 Lymph % (Auto) [place]addie 03/31/18 02:42 [place] % (Auto) [employer] [place]ie 03/31/18 02:42 Eos % (Auto) [employer] [place]ie 03/31/18 02:42 Baso % (Auto) [employer] [place]ie 03/31/18 02:42 Lymph # [employer]ie 03/31/18 02:42 [place] # [employer]addie 03/31/18 02:42 Eos # [employer]ie 03/31/18 02:42 Baso # [employer] [place]ie 03/31/18 02:42 Add Manual Diff Complete 04/01/18 05:21 Total Counted 100 04/01/18 05:21 Seg Neutrophils % [employer] [place]addie 04/01/18 05:21 Seg Neuts % (Manual) 93.0 % (40.0-70.0) H 04/01/18 05:21 Band Neutrophils % 0 % 04/01/18 05:21 Lymphocytes % (Manual) 5.0 % (13.4-35.0) L 04/01/18 05:21 Reactive Lymphs % (Man) 0 % 04/01/18 05:21 Monocytes % (Manual) 2.0 % (0.0-7.3) 04/01/18 05:21 Eosinophils % (Manual) 0 % (0.0-4.3) 04/01/18 05:21 Basophils % (Manual) 0 % (0.0-1.8) 04/01/18 05:21 Metamyelocytes % 0 % 04/01/18 05:21 Myelocytes % 0 % 04/01/18 05:21 Promyelocytes % 0 % 04/01/18 05:21 Blast Cells % 0 % 04/01/18 05:21 Nucleated RBC % Not Reportable 04/01/18 05:21 Seg Neutrophils # [employer] [place]addie 03/31/18 02:42 Seg Neutrophils # Man 14.9 K/mm3 (1.8-7.7) H 04/01/18 05:21 Band Neutrophils # 0.0 K/mm3 04/01/18 05:21 Lymphocytes # (Manual) 0.8 K/mm3 (1.2-5.4) L 04/01/18 05:21 Abs React Lymphs (Man) 0.0 K/mm3 04/01/18 05:21 Monocytes # (Manual) 0.3 K/mm3 (0.0-0.8) 04/01/18 05:21 Eosinophils # (Manual) 0.0 K/mm3 (0.0-0.4) 04/01/18 05:21 Basophils # (Manual) 0.0 K/mm3 (0.0-0.1) 04/01/18 05:21 Metamyelocytes # 0.0 K/mm3 04/01/18 05:21 Myelocytes # 0.0 K/mm3 04/01/18 05:21 Promyelocytes # 0.0 K/mm3 04/01/18 05:21 Blast Cells # 0.0 K/mm3 04/01/18 05:21 WBC Morphology Not Reportable 04/01/18 05:21 Hypersegmented Neuts Not Reportable 04/01/18 05:21 Hyposegmented Neuts Not Reportable 04/01/18 05:21 Hypogranular Neuts Not Reportable 04/01/18 05:21 Smudge Cells Not Reportable 04/01/18 05:21 Toxic Granulation Not Reportable 04/01/18 05:21 Toxic Vacuolation Not Reportable 04/01/18 05:21 Dohle Bodies Not Reportable 04/01/18 05:21 Pelger-Huet Anomaly Not Reportable 04/01/18 05:21 Da Rods Not Reportable 04/01/18 05:21 Platelet Estimate Consistent w auto 04/01/18 05:21 Clumped Platelets Not Reportable 04/01/18 05:21 Plt Clumps, EDTA Not Reportable 04/01/18 05:21 Large Platelets Not Reportable 04/01/18 05:21 Giant Platelets Not Reportable 04/01/18 05:21 Platelet Satelliting Not Reportable 04/01/18 05:21 Plt Morphology Comment Not Reportable 04/01/18 05:21 RBC Morphology Not Reportable 04/01/18 05:21 Dimorphic RBCs Not Reportable 04/01/18 05:21 Polychromasia Few 04/01/18 05:21 Hypochromasia 2+ 04/01/18 05:21 Poikilocytosis Not Reportable 04/01/18 05:21 Anisocytosis 1+ 04/01/18 05:21 Microcytosis 1+ 04/01/18 05:21 Macrocytosis Not Reportable 04/01/18 05:21 Spherocytes Not Reportable 04/01/18 05:21 Pappenheimer Bodies Not Reportable 04/01/18 05:21 Sickle Cells Not Reportable 04/01/18 05:21 Target Cells Not Reportable 04/01/18 05:21 Tear Drop Cells Not Reportable 04/01/18 05:21 Ovalocytes Not Reportable 04/01/18 05:21 Helmet Cells Not Reportable 04/01/18 05:21 Farah-Verlot Bodies Not Reportable 04/01/18 05:21 Long Bottom Rings Not Reportable 04/01/18 05:21 [place] Cells Not Reportable 04/01/18 05:21 Bite Cells Not Reportable 04/01/18 05:21 Crenated Cell Not Reportable 04/01/18 05:21 Elliptocytes Not Reportable 04/01/18 05:21 Acanthocytes (Spur) Not Reportable 04/01/18 05:21 Rouleaux Not Reportable 04/01/18 05:21 Hemoglobin C Crystals Not Reportable 04/01/18 05:21 Schistocytes Not Reportable 04/01/18 05:21 Malaria parasites Not Reportable 04/01/18 05:21 Aashish Bodies Not Reportable 04/01/18 05:21 Hem Pathologist Commnt No 04/01/18 05:21 PT 15.1 Sec. (12.2-14.9) H 03/30/18 01:33 INR 1.15 (0.87-1.13) H 03/30/18 01:33 VBG pH 7.313 (7.320-7.420) L 03/30/18 01:33 Sodium 138 mmol/L (137-145) 04/01/18 05:21 Potassium 4.4 mmol/L (3.6-5.0) 04/01/18 05:21 Chloride 103.0 mmol/L (98-107) 04/01/18 05:21 Carbon Dioxide 23 mmol/L (22-30) 04/01/18 05:21 Anion Gap 16 mmol/L 04/01/18 05:21 BUN 24 mg/dL (7-17) H 04/01/18 05:21 Creatinine 1.2 mg/dL (0.7-1.2) 04/01/18 05:21 Estimated GFR 45 ml/min 04/01/18 05:21 BUN/Creatinine Ratio 20 % 04/01/18 05:21 Glucose 142 mg/dL (65-100) H 04/01/18 05:21 POC Glucose 217 (70-105) H 04/01/18 11:24 Lactic Acid 1.90 mmol/L (0.7-2.0) 03/30/18 05:51 Calcium 9.3 mg/dL (8.4-10.2) 04/01/18 05:21 Total Bilirubin 0.20 mg/dL (0.1-1.2) 03/30/18 01:33 AST 9 units/L (5-40) 03/30/18 01:33 ALT 6 units/L (7-56) L 03/30/18 01:33 Alkaline Phosphatase 214 units/L (35-129) H 03/30/18 01:33 Total Creatine Kinase 144 units/L (30-135) H 03/30/18 12:31 CK-MB (CK-2) 5.3 ng/mL (0.0-4.0) H 03/30/18 12:31 CK-MB (CK-2) Rel Index 3.6 (0-4) 03/30/18 12:31 Troponin T 0.057 ng/mL (0.00-0.029) H D 03/30/18 12:31 NT-Pro-B Natriuret Pep 4219 pg/mL (0-900) H 03/30/18 01:35 Total Protein 7.0 g/dL (6.3-8.2) 03/30/18 01:33 Albumin 3.4 g/dL (3.9-5) L 03/30/18 01:33 Albumin/Globulin Ratio 0.9 % 03/30/18 01:33 Triglycerides 97 mg/dL (2-149) 03/30/18 05:51 Cholesterol 133 mg/dL (50-199) 03/30/18 05:51 LDL Cholesterol Direct 80 mg/dL (50-130) 03/30/18 05:51 HDL Cholesterol 46 mg/dL (40-59) 03/30/18 05:51 Cholesterol/HDL Ratio 2.89 % 03/30/18 05:51 Urine Color Kitty (Yellow) 03/30/18 02:10 Urine Turbidity Clear (Clear) 03/30/18 02:10 Urine pH 5.0 (5.0-7.0) 03/30/18 02:10 Ur Specific [place] 1.024 (1.003-1.030) 03/30/18 02:10 Urine Protein 30 mg/dl mg/dL (Negative) 03/30/18 02:10 Urine Glucose (UA) Neg mg/dL (Negative) 03/30/18 02:10 Urine Ketones Neg mg/dL (Negative) 03/30/18 02:10 Urine Blood Neg (Negative) 03/30/18 02:10 Urine Nitrite Neg (Negative) 03/30/18 02:10 Urine Bilirubin Neg (Negative) 03/30/18 02:10 Urine Urobilinogen 2.0 mg/dL (<2.0) 03/30/18 02:10 Ur Leukocyte Esterase Neg (Negative) 03/30/18 02:10 Urine WBC (Auto) 2.0 /HPF (0.0-6.0) 03/30/18 02:10 Urine RBC (Auto) 2.0 /HPF (0.0-6.0) 03/30/18 02:10 Urine Mucus Few /HPF 03/30/18 02:10
[2018-04-02] MEDS: ZOFRAN IV PRN (01:13)
[2018-04-02] MEDS: TYLENOL PO PRN (01:18)
[2018-04-02] MEDS: PROVENTIL IH PRN (01:29)
[2018-04-02] MEDS: SOLU-Medrol IV SCH ×3 (05:34→22:48)
[2018-04-02 05:39] LABS: Mean Corpuscular HGB Conc 29 % (30-34); Platelet Count 480 K/mm3 (140-440); Red Blood Count 4.13 M/mm3 (3.65-5.03)
[2018-04-02 05:42] LABS: Hematocrit 28.7 % (30.3-42.9); Hemoglobin 8.4 gm/dl (10.1-14.3); Mean Corpuscular Volume 70 fl (79-97)
[2018-04-02 05:59] LABS: Calcium 9.3 mg/dL (8.4-10.2)
--- NOTE | 2018-04-02 08:27 | Progress Note ---
Assessment and Plan Acute bronchitis Chest pain, musculoskeletal Hx of CAD s/p PCI of the RCA 12/2017 s/p PCI of the mid circumflex instent restenosis 02/2018. Ejection fraction 50-55% by echo 12/2017. Plan: Continue medical therapy for coronary artery disease including aspirin and plavix without interruption. Subjective Date of service: 04/02/18 Interval history: Patient has no cardiac complaints. Objective Vital Signs Temp Pulse Pulse Resp Resp Resp BP 04/02/18 04:16 98.0 F 64 24 130/44 04/02/18 02:18 18 04/02/18 01:42 66 18 04/02/18 01:32 66 18 04/02/18 01:18 20 04/01/18 22:07 98.7 F 66 18 04/01/18 22:00 18 18 04/01/18 17:13 97.3 F L 65 20 133/47 04/01/18 17:07 132/61 04/01/18 11:17 98.5 F 68 22 150/63 04/01/18 09:35 122/47 04/01/18 09:34 122/47 04/01/18 09:33 75 20 122/47 04/01/18 08:43 BP Pulse Ox 04/02/18 04:16 97 04/02/18 02:18 04/02/18 01:42 04/02/18 01:32 04/02/18 01:18 04/01/18 22:07 136/55 04/01/18 22:00 96 04/01/18 17:13 96 04/01/18 17:07 04/01/18 11:17 97 04/01/18 09:35 04/01/18 09:34 04/01/18 09:33 97 04/01/18 08:43 98 - Physical Examination General: No Apparent Distress HEENT: Positive: PERRL Cardiac: Positive: Reg Rate and Rhythm Lungs: Positive: Decreased Breath Sounds Neuro: Positive: Grossly Intact Abdomen: Positive: Soft Extremities: Absent: edema - Labs and Meds CBC 04/02/18 Range/Units 04:29 WBC 12.0 H (4.5-11.0) K/mm3 RBC 4.13 (3.65-5.03) M/mm3 Hgb 8.4 L (10.1-14.3) gm/dl Hct 28.7 L (30.3-42.9) % Plt Count 480 H (140-440) K/mm3 Comprehensive Metabolic Panel 04/02/18 Range/Units 04:29 Sodium 140 (137-145) mmol/L Potassium 4.2 (3.6-5.0) mmol/L Chloride 101.0 (98-107) mmol/L Carbon Dioxide 24 (22-30) mmol/L BUN 28 H (7-17) mg/dL Creatinine 1.3 H (0.7-1.2) mg/dL Glucose 158 H (65-100) mg/dL Calcium 9.3 (8.4-10.2) mg/dL
[2018-04-02] MEDS: HumuLIN R SUB-Q SCH ×2 (08:30→12:30)
[2018-04-02] MEDS: LOPRESSOR PO SCH ×2 (09:42→18:19)
[2018-04-02] MEDS: LASIX IV SCH (09:42)
[2018-04-02] MEDS ORDERED: LEVAQUIN PO SCH (10:00)
[2018-04-02] MEDS ORDERED: LASIX PO ONE (10:30)
[2018-04-02] MEDS: ROBITUSSIN AC PO PRN ×2 (11:59→15:54)
[2018-04-02] MEDS: WELLBUTRIN XL PO SCH (11:59)
[2018-04-02] MEDS: PLAVIX PO SCH (11:59)
[2018-04-02] MEDS: PROTONIX PO SCH (12:01)
[2018-04-02] MEDS: HALFPRIN EC PO SCH (12:02)
[2018-04-02] MEDS: TOPAMAX PO SCH ×2 (12:03→22:48)
[2018-04-02] MEDS: LaMICtal PO SCH ×2 (12:03→22:47)
[2018-04-02] MEDS: EFFEXOR XR PO SCH (12:04)
[2018-04-02] MEDS: RANEXA ER PO SCH ×2 (12:04→22:48)
[2018-04-02] MEDS: HEPARIN SUB-Q SCH ×2 (12:09→22:49)
[2018-04-02] MEDS: APRESOLINE PO SCH ×4 (12:12→22:51)
[2018-04-02] MEDS: IMDUR PO SCH (12:13)
[2018-04-02] MEDS: CLARITIN-D 24HR PO SCH (15:54)
--- NOTE | 2018-04-02 16:28 | Progress Note ---
Assessment and Plan Assessment and plan: Patient is a 67 yo Woman with a history of CAD, s/p s/p PCI of the RCA 12/2017 s/p PCI of the mid circumflex instent restenosis 02/2018, Ejection fraction 50-55% by echo 12/2017, hypertension, Type 2 DM, Seizure Disorder, GERD, AOCD and dyslipidemia who presented to [facility] ED with SOB and chest pains. * pCXR reported no acute findings -Acute hypoxic respiratory failure: 2 liters of O2 new, trying to wean -Acute bronchitis: Bronchodilators, empiric antibiotics, cough medicine and supportive care, antihistamines, worsening cough will get noncontrast CT chest, add Tessalon pearles -Chest pains mostly MSK/costochondritis related per Cardiology -History of multivessel coronary artery disease status post PCI; Continue current cardiac medications: Cardiology evaluated -Anemia; chronic, closely monitor H&H and transfuse as needed -Type 2 DM with hyperglycemia: adjust Insulin dosage -Dyslipidemia continue statin; -GERD; Protonix -History of seizure disorder; seizure precautions, continue anti epileptic medications -History of depression; stable on anti depression medications -DVT prophylaxis; Lovenox Wean o2 ct chest for worsening cough History Interval history: Patient was seen and examined. Follow-up on current diagnosis of sob from Bronchitis. Overnight uneventful. Patient denies any chest pain, nausea/vomiting or severe headaches. Imaging, nursing note, chart, labs and old chart reviewed. Discussed with patient. Her cough is still worrisome especially at night. She is still on 2 liters of O2 which is new to her. Hospitalist Physical - Physical exam Narrative exam: Gen: WDWN, NAD, Awake, Alert, Orientated HEENT: NCAT, EOMI, PERRL, OP Clear Neck: supple, no adenopathy, no thyromegaly, no JVD CVS/Heart: RRR, normal S1S2, pulses present bilaterally Chest/Lungs: diminished bs bilaterally, Symmetrical chest expansion, good air entry bilaterally GI/Abdomen: soft, NTND, good bowel sounds, no guarding or rebound /Bladder: no suprapubic tenderness, no CVA or paraspinal tenderness Extermity/Skin: no c/c/e, no obvious rash MSK: FROM x 4 Neuro: CN 2-12 grossly intact, no new focal deficits Psych: calm - Constitutional Vitals: Temp Pulse Resp BP Pulse Ox 97.6 F 57 L 22 116/45 93 04/02/18 11:45 04/02/18 15:53 04/02/18 11:45 04/02/18 15:53 04/02/18 13:19 General appearance: Present: well-nourished Results - Labs CBC & Chem 7: 04/02/18 04:29 04/02/18 04:29 Labs: Laboratory Last Values WBC 12.0 K/mm3 (4.5-11.0) H 04/02/18 04:29 RBC 4.13 M/mm3 (3.65-5.03) 04/02/18 04:29 Hgb 8.4 gm/dl (10.1-14.3) L 04/02/18 04:29 Hct 28.7 % (30.3-42.9) L 04/02/18 04:29 MCV 70 fl (79-97) L 04/02/18 04:29 MCH 20 pg (28-32) L 04/02/18 04:29 MCHC 29 % (30-34) L 04/02/18 04:29 RDW 20.0 % (13.2-15.2) H 04/02/18 04:29 Plt Count 480 K/mm3 (140-440) H 04/02/18 04:29 Lymph % (Auto) Computer Operations Technician 03/31/18 02:42 [place] % (Auto) Computer Operations Technician 03/31/18 02:42 Eos % (Auto) Computer Operations Technician 03/31/18 02:42 Baso % (Auto) Computer Operations Technician 03/31/18 02:42 Lymph # Computer Operations Technician 03/31/18 02:42 [place] # Computer Operations Technician 03/31/18 02:42 Eos # Computer Operations Technician 03/31/18 02:42 Baso # Computer Operations Technician 03/31/18 02:42 Add Manual Diff Complete 04/01/18 05:21 Total Counted 100 04/01/18 05:21 Seg Neutrophils % Computer Operations Technician 04/01/18 05:21 Seg Neuts % (Manual) 93.0 % (40.0-70.0) H 04/01/18 05:21 Band Neutrophils % 0 % 04/01/18 05:21 Lymphocytes % (Manual) 5.0 % (13.4-35.0) L 04/01/18 05:21 Reactive Lymphs % (Man) 0 % 04/01/18 05:21 Monocytes % (Manual) 2.0 % (0.0-7.3) 04/01/18 05:21 Eosinophils % (Manual) 0 % (0.0-4.3) 04/01/18 05:21 Basophils % (Manual) 0 % (0.0-1.8) 04/01/18 05:21 Metamyelocytes % 0 % 04/01/18 05:21 Myelocytes % 0 % 04/01/18 05:21 Promyelocytes % 0 % 04/01/18 05:21 Blast Cells % 0 % 04/01/18 05:21 Nucleated RBC % Not Reportable 04/01/18 05:21 Seg Neutrophils # Computer Operations Technician 03/31/18 02:42 Seg Neutrophils # Man 14.9 K/mm3 (1.8-7.7) H 04/01/18 05:21 Band Neutrophils # 0.0 K/mm3 04/01/18 05:21 Lymphocytes # (Manual) 0.8 K/mm3 (1.2-5.4) L 04/01/18 05:21 Abs React Lymphs (Man) 0.0 K/mm3 04/01/18 05:21 Monocytes # (Manual) 0.3 K/mm3 (0.0-0.8) 04/01/18 05:21 Eosinophils # (Manual) 0.0 K/mm3 (0.0-0.4) 04/01/18 05:21 Basophils # (Manual) 0.0 K/mm3 (0.0-0.1) 04/01/18 05:21 Metamyelocytes # 0.0 K/mm3 04/01/18 05:21 Myelocytes # 0.0 K/mm3 04/01/18 05:21 Promyelocytes # 0.0 K/mm3 04/01/18 05:21 Blast Cells # 0.0 K/mm3 04/01/18 05:21 WBC Morphology Not Reportable 04/01/18 05:21 Hypersegmented Neuts Not Reportable 04/01/18 05:21 Hyposegmented Neuts Not Reportable 04/01/18 05:21 Hypogranular Neuts Not Reportable 04/01/18 05:21 Smudge Cells Not Reportable 04/01/18 05:21 Toxic Granulation Not Reportable 04/01/18 05:21 Toxic Vacuolation Not Reportable 04/01/18 05:21 Dohle Bodies Not Reportable 04/01/18 05:21 Pelger-Huet Anomaly Not Reportable 04/01/18 05:21 Da Rods Not Reportable 04/01/18 05:21 Platelet Estimate Consistent w auto 04/01/18 05:21 Clumped Platelets Not Reportable 04/01/18 05:21 Plt Clumps, EDTA Not Reportable 04/01/18 05:21 Large Platelets Not Reportable 04/01/18 05:21 Giant Platelets Not Reportable 04/01/18 05:21 Platelet Satelliting Not Reportable 04/01/18 05:21 Plt Morphology Comment Not Reportable 04/01/18 05:21 RBC Morphology Not Reportable 04/01/18 05:21 Dimorphic RBCs Not Reportable 04/01/18 05:21 Polychromasia Few 04/01/18 05:21 Hypochromasia 2+ 04/01/18 05:21 Poikilocytosis Not Reportable 04/01/18 05:21 Anisocytosis 1+ 04/01/18 05:21 Microcytosis 1+ 04/01/18 05:21 Macrocytosis Not Reportable 04/01/18 05:21 Spherocytes Not Reportable 04/01/18 05:21 Pappenheimer Bodies Not Reportable 04/01/18 05:21 Sickle Cells Not Reportable 04/01/18 05:21 Target Cells Not Reportable 04/01/18 05:21 Tear Drop Cells Not Reportable 04/01/18 05:21 Ovalocytes Not Reportable 04/01/18 05:21 Helmet Cells Not Reportable 04/01/18 05:21 [place] Bodies Not Reportable 04/01/18 05:21 [place] Rings Not Reportable 04/01/18 05:21 [place] Cells Not Reportable 04/01/18 05:21 Bite Cells Not Reportable 04/01/18 05:21 Crenated Cell Not Reportable 04/01/18 05:21 Elliptocytes Not Reportable 04/01/18 05:21 Acanthocytes (Spur) Not Reportable 04/01/18 05:21 Rouleaux Not Reportable 04/01/18 05:21 Hemoglobin C Crystals Not Reportable 04/01/18 05:21 Schistocytes Not Reportable 04/01/18 05:21 Malaria parasites Not Reportable 04/01/18 05:21 Aashish Bodies Not Reportable 04/01/18 05:21 Hem Pathologist Commnt No 04/01/18 05:21 PT 15.1 Sec. (12.2-14.9) H 03/30/18 01:33 INR 1.15 (0.87-1.13) H 03/30/18 01:33 VBG pH 7.313 (7.320-7.420) L 03/30/18 01:33 Sodium 140 mmol/L (137-145) 04/02/18 04:29 Potassium 4.2 mmol/L (3.6-5.0) 04/02/18 04:29 Chloride 101.0 mmol/L (98-107) 04/02/18 04:29 Carbon Dioxide 24 mmol/L (22-30) 04/02/18 04:29 Anion Gap 19 mmol/L 04/02/18 04:29 BUN 28 mg/dL (7-17) H 04/02/18 04:29 Creatinine 1.3 mg/dL (0.7-1.2) H 04/02/18 04:29 Estimated GFR 41 ml/min 04/02/18 04:29 BUN/Creatinine Ratio 22 % 04/02/18 04:29 Glucose 158 mg/dL (65-100) H 04/02/18 04:29 POC Glucose 207 (70-105) H 04/02/18 11:48 Lactic Acid 1.90 mmol/L (0.7-2.0) 03/30/18 05:51 Calcium 9.3 mg/dL (8.4-10.2) 04/02/18 04:29 Total Bilirubin 0.20 mg/dL (0.1-1.2) 03/30/18 01:33 AST 9 units/L (5-40) 03/30/18 01:33 ALT 6 units/L (7-56) L 03/30/18 01:33 Alkaline Phosphatase 214 units/L (35-129) H 03/30/18 01:33 Total Creatine Kinase 144 units/L (30-135) H 03/30/18 12:31 CK-MB (CK-2) 5.3 ng/mL (0.0-4.0) H 03/30/18 12:31 CK-MB (CK-2) Rel Index 3.6 (0-4) 03/30/18 12:31 Troponin T 0.057 ng/mL (0.00-0.029) H D 03/30/18 12:31 NT-Pro-B Natriuret Pep 4219 pg/mL (0-900) H 03/30/18 01:35 Total Protein 7.0 g/dL (6.3-8.2) 03/30/18 01:33 Albumin 3.4 g/dL (3.9-5) L 03/30/18 01:33 Albumin/Globulin Ratio 0.9 % 03/30/18 01:33 Triglycerides 97 mg/dL (2-149) 03/30/18 05:51 Cholesterol 133 mg/dL (50-199) 03/30/18 05:51 LDL Cholesterol Direct 80 mg/dL (50-130) 03/30/18 05:51 HDL Cholesterol 46 mg/dL (40-59) 03/30/18 05:51 Cholesterol/HDL Ratio 2.89 % 03/30/18 05:51 Urine Color Kitty (Yellow) 03/30/18 02:10 Urine Turbidity Clear (Clear) 03/30/18 02:10 Urine pH 5.0 (5.0-7.0) 03/30/18 02:10 Ur Specific [place] 1.024 (1.003-1.030) 03/30/18 02:10 Urine Protein 30 mg/dl mg/dL (Negative) 03/30/18 02:10 Urine Glucose (UA) Neg mg/dL (Negative) 03/30/18 02:10 Urine Ketones Neg mg/dL (Negative) 03/30/18 02:10 Urine Blood Neg (Negative) 03/30/18 02:10 Urine Nitrite Neg (Negative) 03/30/18 02:10 Urine Bilirubin Neg (Negative) 03/30/18 02:10 Urine Urobilinogen 2.0 mg/dL (<2.0) 03/30/18 02:10 Ur Leukocyte Esterase Neg (Negative) 03/30/18 02:10 Urine WBC (Auto) 2.0 /HPF (0.0-6.0) 03/30/18 02:10 Urine RBC (Auto) 2.0 /HPF (0.0-6.0) 03/30/18 02:10 Urine Mucus Few /HPF 03/30/18 02:10
[2018-04-02] MEDS ORDERED: D50W (25GM) Syringe IV PRN (16:29)
--- NOTE | 2018-04-02 17:16 | Cat Scan Report ---
FINAL REPORT EXAM: CT CHEST WO CON HISTORY: Pneumonia, worsening cough TECHNIQUE: Axial helical imaging through the chest with sagittal and coronal reformatted images obta ined. Comparison: Chest x-ray dated March 30, 2018 FINDINGS: Visualization detail in portions of the chest is somewhat limited by motion artifact. There are patchy areas of ground-glass pulmonary consolidation in both lungs suggestive of a pneumoni tis. Differential diagnosis includes mosaic perfusion. There is no evidence of pneumothorax or pleural fluid collection. The trachea and bronchi are patent. The heart is enlarged with atherosclerotic vascular calcification of the coronary arteries. The thoracic aorta is normal caliber with atherosclerotic vascular calcification. There are mildly prominent mediastinal lymph nodes that are nonspecific in appearance but are most li eliazar inflammatory in nature. The visualized portion the upper abdomen is unremarkable. The bony structures are notable for spondylitic change of the thoracic spine and visualized portion o f the lumbar spine. IMPRESSION: 1. Patchy areas of ground-glass pulmonary consolidation both lungs. Differential diagnosis includes p neumonitis and mosaic perfusion 2. Cardiomegaly.
[2018-04-02] MEDS: HumaLOG SUB-Q SCH ×2 (17:30→22:48)
[2018-04-02] MEDS: TESSALON PERLES PO SCH ×2 (18:19→23:03)
[2018-04-03] MEDS: ROBITUSSIN AC PO PRN (04:01)
[2018-04-03] MEDS: PROVENTIL IH PRN (04:09)
--- NOTE | 2018-04-03 04:57 | Progress Note ---
Assessment and Plan Assessment and plan: Patient is a 67 yo Woman with a history of CAD, s/p s/p PCI of the RCA 12/2017 s/p PCI of the mid circumflex instent restenosis 02/2018, Ejection fraction 50-55% by echo 12/2017, hypertension, Type 2 DM, Seizure Disorder, GERD, AOCD and dyslipidemia who presented to [facility] ED with SOB and chest pains. * pCXR reported no acute findings -Acute hypoxic respiratory failure: 2 liters of O2 new, trying to wean -Acute bronchitis==>most likely sepsis pneumonia poa which was early Pna/sepsis not present on CXR: Bronchodilators, empiric antibiotics, cough medicine and supportive care, antihistamines, worsening cough will get noncontrast CT chest, add Tessalon pearles -Chest pains mostly MSK/costochondritis related per Cardiology -History of multivessel coronary artery disease status post PCI; Continue curr ent cardiac medications: Cardiology evaluated -Anemia; chronic, closely monitor H&H and transfuse as needed -Type 2 DM with hyperglycemia: adjust Insulin dosage -Dyslipidemia continue statin; -GERD; Protonix -History of seizure disorder; seizure precautions, continue anti epileptic medications -History of depression; stable on anti depression medications -DVT prophylaxis; Lovenox Weaned o2, will d/c home ct chest for worsening cough===>bilateral ground glass opacity bilateral lung, diff include pneumonitis History Interval history: Patient was seen and examined. Follow-up on current diagnosis of sob from Bronchitis. Overnight uneventful. Patient denies any chest pain, nausea/vomiting or severe headaches. Imaging, nursing note, chart, labs and old chart reviewed. Discussed with patient. Her cough is still worrisome especially at night. She is still on 2 liters of O2 which is new to her. Hospitalist Physical - Physical exam Narrative exam: Gen: WDWN, NAD, Awake, Alert, Orientated HEENT: NCAT, EOMI, PERRL, OP Clear Neck: supple, no adenopathy, no thyromegaly, no JVD CVS/Heart: RRR, normal S1S2, pulses present bilaterally Chest/Lungs: diminished bs bilaterally, Symmetrical chest expansion, good air entry bilaterally GI/Abdomen: soft, NTND, good bowel sounds, no guarding or rebound /Bladder: no suprapubic tenderness, no CVA or paraspinal tenderness Extermity/Skin: no c/c/e, no obvious rash MSK: FROM x 4, right bka Neuro: CN 2-12 grossly intact, no new focal deficits Psych: calm - Constitutional Vitals: Temp Pulse Resp BP Pulse Ox 99.3 F 73 20 161/63 100 04/02/18 23:33 04/03/18 04:30 04/03/18 04:30 04/02/18 23:33 04/03/18 04:11 General appearance: Present: well-nourished Results - Labs CBC & Chem 7: 04/03/18 06:05 04/03/18 06:05 Labs: Laboratory Last Values WBC 12.0 K/mm3 (4.5-11.0) H 04/02/18 04:29 RBC 4.13 M/mm3 (3.65-5.03) 04/02/18 04:29 Hgb 8.4 gm/dl (10.1-14.3) L 04/02/18 04:29 Hct 28.7 % (30.3-42.9) L 04/02/18 04:29 MCV 70 fl (79-97) L 04/02/18 04:29 MCH 20 pg (28-32) L 04/02/18 04:29 MCHC 29 % (30-34) L 04/02/18 04:29 RDW 20.0 % (13.2-15.2) H 04/02/18 04:29 Plt Count 480 K/mm3 (140-440) H 04/02/18 04:29 Lymph % (Auto) Land Commissioner 03/31/18 02:42 [place] % (Auto) Land Commissioner 03/31/18 02:42 Eos % (Auto) Land Commissioner 03/31/18 02:42 Baso % (Auto) Land Commissioner 03/31/18 02:42 Lymph # Land Commissioner 03/31/18 02:42 [place] # Land Commissioner 03/31/18 02:42 Eos # Land Commissioner 03/31/18 02:42 Baso # Land Commissioner 03/31/18 02:42 Add Manual Diff Complete 04/01/18 05:21 Total Counted 100 04/01/18 05:21 Seg Neutrophils % Land Commissioner 04/01/18 05:21 Seg Neuts % (Manual) 93.0 % (40.0-70.0) H 04/01/18 05:21 Band Neutrophils % 0 % 04/01/18 05:21 Lymphocytes % (Manual) 5.0 % (13.4-35.0) L 04/01/18 05:21 Reactive Lymphs % (Man) 0 % 04/01/18 05:21 Monocytes % (Manual) 2.0 % (0.0-7.3) 04/01/18 05:21 Eosinophils % (Manual) 0 % (0.0-4.3) 04/01/18 05:21 Basophils % (Manual) 0 % (0.0-1.8) 04/01/18 05:21 Metamyelocytes % 0 % 04/01/18 05:21 Myelocytes % 0 % 04/01/18 05:21 Promyelocytes % 0 % 04/01/18 05:21 Blast Cells % 0 % 04/01/18 05:21 Nucleated RBC % Not Reportable 04/01/18 05:21 Seg Neutrophils # Land Commissioner 03/31/18 02:42 Seg Neutrophils # Man 14.9 K/mm3 (1.8-7.7) H 04/01/18 05:21 Band Neutrophils # 0.0 K/mm3 04/01/18 05:21 Lymphocytes # (Manual) 0.8 K/mm3 (1.2-5.4) L 04/01/18 05:21 Abs React Lymphs (Man) 0.0 K/mm3 04/01/18 05:21 Monocytes # (Manual) 0.3 K/mm3 (0.0-0.8) 04/01/18 05:21 Eosinophils # (Manual) 0.0 K/mm3 (0.0-0.4) 04/01/18 05:21 Basophils # (Manual) 0.0 K/mm3 (0.0-0.1) 04/01/18 05:21 Metamyelocytes # 0.0 K/mm3 04/01/18 05:21 Myelocytes # 0.0 K/mm3 04/01/18 05:21 Promyelocytes # 0.0 K/mm3 04/01/18 05:21 Blast Cells # 0.0 K/mm3 04/01/18 05:21 WBC Morphology Not Reportable 04/01/18 05:21 Hypersegmented Neuts Not Reportable 04/01/18 05:21 Hyposegmented Neuts Not Reportable 04/01/18 05:21 Hypogranular Neuts Not Reportable 04/01/18 05:21 Smudge Cells Not Reportable 04/01/18 05:21 Toxic Granulation Not Reportable 04/01/18 05:21 Toxic Vacuolation Not Reportable 04/01/18 05:21 Dohle Bodies Not Reportable 04/01/18 05:21 Pelger-Huet Anomaly Not Reportable 04/01/18 05:21 Da Rods Not Reportable 04/01/18 05:21 Platelet Estimate Consistent w auto 04/01/18 05:21 Clumped Platelets Not Reportable 04/01/18 05:21 Plt Clumps, EDTA Not Reportable 04/01/18 05:21 Large Platelets Not Reportable 04/01/18 05:21 Giant Platelets Not Reportable 04/01/18 05:21 Platelet Satelliting Not Reportable 04/01/18 05:21 Plt Morphology Comment Not Reportable 04/01/18 05:21 RBC Morphology Not Reportable 04/01/18 05:21 Dimorphic RBCs Not Reportable 04/01/18 05:21 Polychromasia Few 04/01/18 05:21 Hypochromasia 2+ 04/01/18 05:21 Poikilocytosis Not Reportable 04/01/18 05:21 Anisocytosis 1+ 04/01/18 05:21 Microcytosis 1+ 04/01/18 05:21 Macrocytosis Not Reportable 04/01/18 05:21 Spherocytes Not Reportable 04/01/18 05:21 Pappenheimer Bodies Not Reportable 04/01/18 05:21 Sickle Cells Not Reportable 04/01/18 05:21 Target Cells Not Reportable 04/01/18 05:21 Tear Drop Cells Not Reportable 04/01/18 05:21 Ovalocytes Not Reportable 04/01/18 05:21 Helmet Cells Not Reportable 04/01/18 05:21 Farah-[place] Bodies Not Reportable 04/01/18 05:21 [place] Rings Not Reportable 04/01/18 05:21 [place] Cells Not Reportable 04/01/18 05:21 Bite Cells Not Reportable 04/01/18 05:21 Crenated Cell Not Reportable 04/01/18 05:21 Elliptocytes Not Reportable 04/01/18 05:21 Acanthocytes (Spur) Not Reportable 04/01/18 05:21 Rouleaux Not Reportable 04/01/18 05:21 Hemoglobin C Crystals Not Reportable 04/01/18 05:21 Schistocytes Not Reportable 04/01/18 05:21 Malaria parasites Not Reportable 04/01/18 05:21 Aashish Bodies Not Reportable 04/01/18 05:21 Hem Pathologist Commnt No 04/01/18 05:21 PT 15.1 Sec. (12.2-14.9) H 03/30/18 01:33 INR 1.15 (0.87-1.13) H 03/30/18 01:33 VBG pH 7.313 (7.320-7.420) L 03/30/18 01:33 Sodium 140 mmol/L (137-145) 04/02/18 04:29 Potassium 4.2 mmol/L (3.6-5.0) 04/02/18 04:29 Chloride 101.0 mmol/L (98-107) 04/02/18 04:29 Carbon Dioxide 24 mmol/L (22-30) 04/02/18 04:29 Anion Gap 19 mmol/L 04/02/18 04:29 BUN 28 mg/dL (7-17) H 04/02/18 04:29 Creatinine 1.3 mg/dL (0.7-1.2) H 04/02/18 04:29 Estimated GFR 41 ml/min 04/02/18 04:29 BUN/Creatinine Ratio 22 % 04/02/18 04:29 Glucose 158 mg/dL (65-100) H 04/02/18 04:29 POC Glucose 158 (70-105) H 04/02/18 21:33 Lactic Acid 1.90 mmol/L (0.7-2.0) 03/30/18 05:51 Calcium 9.3 mg/dL (8.4-10.2) 04/02/18 04:29 Total Bilirubin 0.20 mg/dL (0.1-1.2) 03/30/18 01:33 AST 9 units/L (5-40) 03/30/18 01:33 ALT 6 units/L (7-56) L 03/30/18 01:33 Alkaline Phosphatase 214 units/L (35-129) H 03/30/18 01:33 Total Creatine Kinase 144 units/L (30-135) H 03/30/18 12:31 CK-MB (CK-2) 5.3 ng/mL (0.0-4.0) H 03/30/18 12:31 CK-MB (CK-2) Rel Index 3.6 (0-4) 03/30/18 12:31 Troponin T 0.057 ng/mL (0.00-0.029) H D 03/30/18 12:31 NT-Pro-B Natriuret Pep 4219 pg/mL (0-900) H 03/30/18 01:35 Total Protein 7.0 g/dL (6.3-8.2) 03/30/18 01:33 Albumin 3.4 g/dL (3.9-5) L 03/30/18 01:33 Albumin/Globulin Ratio 0.9 % 03/30/18 01:33 Triglycerides 97 mg/dL (2-149) 03/30/18 05:51 Cholesterol 133 mg/dL (50-199) 03/30/18 05:51 LDL Cholesterol Direct 80 mg/dL (50-130) 03/30/18 05:51 HDL Cholesterol 46 mg/dL (40-59) 03/30/18 05:51 Cholesterol/HDL Ratio 2.89 % 03/30/18 05:51 Urine Color Kitty (Yellow) 03/30/18 02:10 Urine Turbidity Clear (Clear) 03/30/18 02:10 Urine pH 5.0 (5.0-7.0) 03/30/18 02:10 Ur Specific [place] 1.024 (1.003-1.030) 03/30/18 02:10 Urine Protein 30 mg/dl mg/dL (Negative) 03/30/18 02:10 Urine Glucose (UA) Neg mg/dL (Negative) 03/30/18 02:10 Urine Ketones Neg mg/dL (Negative) 03/30/18 02:10 Urine Blood Neg (Negative) 03/30/18 02:10 Urine Nitrite Neg (Negative) 03/30/18 02:10 Urine Bilirubin Neg (Negative) 03/30/18 02:10 Urine Urobilinogen 2.0 mg/dL (<2.0) 03/30/18 02:10 Ur Leukocyte Esterase Neg (Negative) 03/30/18 02:10 Urine WBC (Auto) 2.0 /HPF (0.0-6.0) 03/30/18 02:10 Urine RBC (Auto) 2.0 /HPF (0.0-6.0) 03/30/18 02:10 Urine Mucus Few /HPF 03/30/18 02:10
[2018-04-03] MEDS: TESSALON PERLES PO SCH ×2 (05:46→14:47)
[2018-04-03] MEDS: SOLU-Medrol IV SCH ×2 (05:46→14:47)
[2018-04-03 06:45] LABS: Hematocrit 33.1 % (30.3-42.9); Hemoglobin 10.1 gm/dl (10.1-14.3); Mean Corpuscular HGB Conc 31 % (30-34); Platelet Count 501 K/mm3 (140-440); Red Blood Count 4.96 M/mm3 (3.65-5.03)
[2018-04-03 06:46] LABS: Calcium 9.4 mg/dL (8.4-10.2)
[2018-04-03 06:57] LABS: Mean Corpuscular Volume 67 fl (79-97); Red Cell Distribution Width 20.2 % (13.2-15.2)
--- NOTE | 2018-04-03 08:39 | Progress Note ---
Addendum entered and electronically signed by FLORESITA REIS MD 04/03/18 14:02: Cardiac status is asymptomatic, continue medical therapy for coronary disease. Original Note: Assessment and Plan Acute bronchitis Chest pain, musculoskeletal Hx of CAD s/p PCI of the RCA 12/2017 s/p PCI of the mid circumflex instent restenosis 02/2018. Ejection fraction 50-55% by echo 12/2017. Plan: Continue medical therapy for coronary artery disease. Subjective Date of service: 04/03/18 Interval history: Patient has no cardiac complaints. Stable sinus rhythm on telemetry. Objective Vital Signs Temp Pulse Pulse Resp Resp Resp Resp 04/03/18 05:13 98.0 F 71 18 04/03/18 04:30 73 20 04/03/18 04:11 71 21 04/02/18 23:33 99.3 F 66 20 04/02/18 22:51 63 04/02/18 22:00 18 17 17 04/02/18 19:00 61 18 04/02/18 18:19 60 04/02/18 17:29 97.9 F 63 20 04/02/18 15:53 57 L 04/02/18 13:19 04/02/18 12:13 56 L 04/02/18 12:12 56 L 04/02/18 11:45 97.6 F 58 L 22 04/02/18 10:00 20 04/02/18 09:42 66 Resp BP Pulse Ox 04/03/18 05:13 133/56 91 04/03/18 04:30 04/03/18 04:11 100 04/02/18 23:33 161/63 95 04/02/18 22:51 137/50 04/02/18 22:00 17 04/02/18 19:00 138/48 97 04/02/18 18:19 04/02/18 17:29 141/45 95 04/02/18 15:53 116/45 04/02/18 13:19 93 04/02/18 12:13 04/02/18 12:12 04/02/18 11:45 132/55 99 04/02/18 10:00 04/02/18 09:42 139/56 - Physical Examination General: No Apparent Distress HEENT: Positive: PERRL Cardiac: Positive: Reg Rate and Rhythm Lungs: Positive: Decreased Breath Sounds Neuro: Positive: Grossly Intact Extremities: Absent: edema - Labs and Meds CBC 04/03/18 Range/Units 06:05 WBC 8.0 (4.5-11.0) K/mm3 RBC 4.96 (3.65-5.03) M/mm3 Hgb 10.1 (10.1-14.3) gm/dl Hct 33.1 (30.3-42.9) % Plt Count 501 H (140-440) K/mm3 Comprehensive Metabolic Panel 04/03/18 Range/Units 06:05 Sodium 138 (137-145) mmol/L Potassium 3.8 (3.6-5.0) mmol/L Chloride 99.6 (98-107) mmol/L Carbon Dioxide 22 (22-30) mmol/L BUN 29 H (7-17) mg/dL Creatinine 1.2 (0.7-1.2) mg/dL Glucose 178 H (65-100) mg/dL Calcium 9.4 (8.4-10.2) mg/dL
[2018-04-03] MEDS: HumaLOG SUB-Q SCH ×3 (09:08→16:51)
[2018-04-03] MEDS: PLAVIX PO SCH (09:53)
[2018-04-03] MEDS: WELLBUTRIN XL PO SCH (09:53)
[2018-04-03] MEDS: LOPRESSOR PO SCH (09:53)
[2018-04-03] MEDS: LaMICtal PO SCH (09:53)
[2018-04-03] MEDS: IMDUR PO SCH (09:54)
[2018-04-03] MEDS: HEPARIN SUB-Q SCH (09:55)
[2018-04-03] MEDS: HALFPRIN EC PO SCH (09:55)
[2018-04-03] MEDS: PROTONIX PO SCH (09:55)
[2018-04-03] MEDS: EFFEXOR XR PO SCH (10:27)
[2018-04-03] MEDS: APRESOLINE PO SCH ×2 (10:28→14:47)
[2018-04-03] MEDS: RANEXA ER PO SCH (10:29)
[2018-04-03] MEDS: TOPAMAX PO SCH (10:29)
--- NOTE | 2018-04-03 12:48 | Discharge Summary ---
Providers - Providers Date of Admission: 03/30/18 05:42 Date of discharge: 04/03/18 Attending physician: MANDI LIRIANO 03/31/18 11:23 Consult to Physician [CONS] Routine Comment: Consulting Provider: FLORESITA REIS Physician Instructions: Reason For Exam: shortness of breath/CP/recent PCI Primary care physician: DIOMEDES BACON Hospitalization Condition: Stable Hospital course: Patient is a 67 yo Woman with a plethora of serious co-morbidities including CAD, s/p s/p PCI of the RCA 12/2017 s/p PCI of the mid circumflex i nstent restenosis 02/2018, Ejection fraction 50-55% by echo 12/2017, hypertension, Type 2 DM, Seizure Disorder, GERD, AOCD, dyslipidemia and right BKA who presented to [facility] with SOB and chest pains. * pCXR reported no acute findings -Acute hypoxic respiratory failure: 2 liters of O2 new, trying to wean -Acute bronchitis==>most likely sepsis pneumonia poa which was early Pna/sepsis not present on CXR: treated w/ BD, Empiric antibiotics, cough medicine, worsening cough will get noncontrast CT chest, added Tessalon pearles which helped -Chest pains mostly MSK/costochondritis per Cardiology -History of multivessel coronary artery disease status post PCI; Continue current cardiac medications: Cardiology evaluated -Anemia; chronic, closely monitor H&H and transfuse as needed -Type 2 DM with hyperglycemia: adjust Insulin dosage -Dyslipidemia continue statin; -GERD; Protonix -History of seizure disorder; seizure precautions, continue anti epileptic medications -History of depression; stable on anti depression medications -DVT prophylaxis; Lovenox Weaned o2, will d/c home ct chest for worsening cough===>bilateral ground glass opacity bilateral lung, diff include pneumonitis Disposition: DC-01 TO HOME OR SELFCARE Time spent for discharge: 32 minutes Core Measure Documentation - Palliative Care Palliative Care/ Comfort Measures: Not Applicable - Core Measures Any of the following diagnoses?: none - VTE Discharge Requirements Deep Vein Thrombosis/Pulmonary Embolism Present on Admission: No Has pt received <5 days of overlap therapy or INR<2.0: No Anticoagulant overlap therapy prescribed at discharge: No Contraindication No Overlap Therapy order at DC: Not Indicated Exam - Physical Exam Narrative exam: Gen: WDWN, NAD, Awake, Alert, Orientated HEENT: NCAT, EOMI, PERRL, OP Clear Neck: supple, no adenopathy, no thyromegaly, no JVD CVS/Heart: RRR, normal S1S2, pulses present bilaterally Chest/Lungs: diminished bs bilaterally, Symmetrical chest expansion, good air entry bilaterally GI/Abdomen: soft, NTND, good bowel sounds, no guarding or rebound /Bladder: no suprapubic tenderness, no CVA or paraspinal tenderness Extermity/Skin: no c/c/e, no obvious rash MSK: FROM x 4, right bka Neuro: CN 2-12 grossly intact, no new focal deficits Psych: calm - Constitutional Vitals: Temp Pulse Resp BP Pulse Ox 98.0 F 80 18 141/62 95 04/03/18 05:13 04/03/18 10:28 04/03/18 05:13 04/03/18 10:28 04/03/18 10:33 Plan Activity: other (no strenous activity unless cleared by PCP and Cardiology) Diet: low salt, diabetic Special Instructions: record daily BP diary, record blood sugar diary Follow up with: DIOMEDES BACON MD [Primary Care Provider] - 3-5 Days FLORESITA REIS MD [Staff Physician] - 7 Days Prescriptions: ALBUTEROL Inhaler(NF) [VENTOLIN Inhaler(NF)] 2 puff IH Q4H PRN #1 unit PRN Reason: Shortness Of Breath ALBUTEROL NEB's [Proventil 0.083% NEBS] 2.5 mg IH TID PRN 30 Days neb PRN Reason: Shortness Of Breath Benzonatate [Tessalon Perles] 100 mg PO Q8HR PRN 7 Days capsule PRN Reason: Cough guaiFENesin/CODEINE [Robitussin AC] 10 ml PO Q4H PRN 5 Days oral.liqd PRN Reason: Cough Lispro Insulin [Humalog] 1 dose SUB-Q ACHS PRN #30 units PRN Reason: Hyperglycemia methylPREDNISolone [Medrol Dose Rob] 1 dose PO DAILY #1 pack Metoprolol [Lopressor TAB] 50 mg PO BID #60 tablet Ranolazine ER [Ranexa ER] 500 mg PO BID #60 tablet Topiramate [Topamax] 50 mg PO BID #60 tablet levoFLOXacin [Levaquin TAB] 750 mg PO Q48HR #3 tablet
[2018-04-03 13:32] VITALS: BP 138/64
== END 2018-04-03 18:09 | disposition home or self-care (01) | DRG 871 ==
LOC: ED 01:07 → 3A 05:42
PROVIDERS: ADMIT Internal Medicine; ATTEND Internal Medicine
DX: A41.9 Sepsis, unspecified organism (principal); J96.01 Acute respiratory failure with hypoxia; J18.9 Pneumonia, unspecified organism; J20.9 Acute bronchitis, unspecified; I25.10 Atherosclerotic heart disease of native coronary artery without angina pectoris; I50.9 Heart failure, unspecified; R07.89 Other chest pain; I11.0 Hypertensive heart disease with heart failure; K21.9 Gastro-esophageal reflux disease without esophagitis; J45.909 Unspecified asthma, uncomplicated; G40.909 Epilepsy, unspecified, not intractable, without status epilepticus; D63.8 Anemia in other chronic diseases classified elsewhere; E11.65 Type 2 diabetes mellitus with hyperglycemia; G43.909 Migraine, unspecified, not intractable, without status migrainosus; I25.2 Old myocardial infarction; Z95.5 Presence of coronary angioplasty implant and graft; Z90.49 Acquired absence of other specified parts of digestive tract; Z90.89 Acquired absence of other organs; Z88.2 Allergy status to sulfonamides; Z79.51 Long term (current) use of inhaled steroids; Z79.899 Other long term (current) drug therapy; Z79.82 Long term (current) use of aspirin; Z89.511 Acquired absence of right leg below knee
CPT/HCPCS: 36415; 71045; 71250; 80048; 80053; 80061; 81001; 82140; 82550; 82553; 82805; 82962; 83880; 84484; 85007; 85025; 85027; 85610; 87040; 87086; 87116; 93005; 93010; 94640; 94760; G0378; A9270-GY; J1644; J1815; J1940; J1956; J2405; J2920; J2930; J7030

== ENCOUNTER 2019-08-06 20:59 | Inpatient (IN) | payer MEDICARE, OTHER ==
[2019-08-06] MEDS ORDERED: MORPHINE 4 MG/1 ML INJ IV ONE (21:42)
--- NOTE | 2019-08-06 21:49 | Emergency Department Report ---
ED Chest Pain HPI - General Chief Complaint: Chest Pain Stated Complaint: CHEST PAIN Time Seen by Provider: 08/06/19 21:11 Source: patient, EMS Mode of arrival: Stretcher Limitations: No Limitations - History of Present Illness Initial Comments: 69-year-old female presents to the emergency department via EMS from home with complaint of substernal chest pain that is been going on since about 3 PM this afternoon. The pain improves or is "tolerable" if she is laying still and worsens with any type of exertion. She has some mild shortness of breath but denies any fever, nausea, vomiting or diaphoresis. Patient has a history of atrial fibrillation, a "leaky valve", coronary artery disease with previous CT and 12 stents, diet-controlled diabetes. She took a baby aspirin, 3 sublingual nitroglycerin and some Tums at home for her symptoms without much relief. Her primary care physician is the [facility] and her assistant director of nursing is Dr Loyd. No recent travel or sick contacts at home. - Related Data Home Medications Medication Instructions Recorded Confirmed Last Taken Aspirin [Adult Aspirin] 81 mg PO DAILY 12/13/17 08/06/19 03/29/18 81 mg Pantoprazole [Protonix TAB] 40 mg PO QDAY 12/13/17 08/06/19 03/29/18 40 mg lamoTRIgine [LaMICtal] 200 mg PO QAM 12/13/17 08/06/19 03/29/18 200 mg AtorvaSTATin [Lipitor] 20 mg PO QHS 08/06/19 08/06/19 Unknown Citalopram [Celexa] 20 mg PO QDAY 08/06/19 08/06/19 Unknown Losartan [Cozaar] 25 mg PO QDAY 08/06/19 08/06/19 Unknown oxyCODONE /ACETAMINOPHEN [Percocet 1 tab PO Q6HR PRN 08/06/19 08/06/19 Unknown 5/325] traZODone [Desyrel] 50 mg PO QHS 08/06/19 08/06/19 Unknown Previous Rx's Medication Instructions Recorded Last Taken Type Clopidogrel [Plavix] 75 mg PO QDAY #30 tablet 12/17/17 03/29/18 Rx 75 mg ISOSORBIDE MONOnitrate [Imdur ER] 60 mg PO QDAY #30 tablet 03/05/18 03/29/18 Rx 60 mg Nitroglycerin [Nitrostat] 0.4 mg SL Q5M PRN #30 tablet 03/05/18 Unknown Rx ALBUTEROL Inhaler(NF) [VENTOLIN 2 puff IH Q4H PRN #1 unit 04/03/18 Unknown Rx Inhaler(NF)] ALBUTEROL NEB's [Proventil 0.083% 2.5 mg IH TID PRN 30 Days neb 04/03/18 Unknown Rx NEBS] Ranolazine ER [Ranexa ER] 500 mg PO BID #60 tablet 04/03/18 Unknown Rx Allergies Allergy/AdvReac Type Severity Reaction Status Date / Time Sulfa (Sulfonamide Allergy Hives Verified 03/30/18 01:20 Antibiotics) Heart Score - HEART Score History: Moderately suspicious EKG: Non-specific Age: > 65 Risk factors: > 3 risk factors or hx of atherosclerotic disease Troponin: < normal limit HEART Score: 6 - Critical Actions Critical Actions: 4-6 pts:12-16.6% risk of adverse cardiac event. Should be admitted ED Review of Systems ROS: Stated complaint: CHEST PAIN Other details as noted in HPI Comment: All other systems reviewed and negative Constitutional: denies: chills, fever Eyes: denies: eye pain, vision change Respiratory: shortness of breath. denies: cough Cardiovascular: chest pain. denies: palpitations Gastrointestinal: denies: abdominal pain, vomiting Genitourinary: denies: dysuria, discharge Musculoskeletal: denies: back pain, arthralgia Skin: denies: rash, lesions Neurological: denies: headache, weakness ED Past Medical Hx - Past Medical History Previous Medical History?: Yes Hx Hypertension: Yes Hx Heart Attack/AMI: Yes Hx Congestive Heart Failure: Yes Hx Diabetes: Yes Hx Deep Vein Thrombosis: No Hx GERD: Yes Hx Liver Disease: No Hx Sickle Cell Disease: No Hx Arthritis: No Hx Headaches / Migraines: Yes Hx Seizures: No Hx Kidney Stones: No Hx Asthma: Yes Hx COPD: No Hx Tuberculosis: No Hx Dementia: No Hx HIV: No - Surgical History Past Surgical History?: Yes Hx Coronary Stent: Yes Hx Open Heart Surgery: No Hx Pacemaker: No Hx Internal Defibrillator: No Hx Cholecystectomy: Yes Hx Appendectomy: Yes Hx Breast Surgery: No Additional Surgical History: appendectomy/ R-leg amputation/ knee replacement/ tonsillectomy/ appendectomy/ ankle reconstruction - Social History Smoking Status: Never Smoker Substance Use Type: None - Medications Home Medications: Home Medications Medication Instructions Recorded Confirmed Last Taken Type Aspirin [Adult Aspirin] 81 mg PO DAILY 12/13/17 08/06/19 03/29/18 History 81 mg Pantoprazole [Protonix TAB] 40 mg PO QDAY 12/13/17 08/06/19 03/29/18 History 40 mg lamoTRIgine [LaMICtal] 200 mg PO QAM 12/13/17 08/06/19 03/29/18 History 200 mg Clopidogrel [Plavix] 75 mg PO QDAY #30 tablet 12/17/17 08/06/19 03/29/18 Rx 75 mg ISOSORBIDE MONOnitrate [Imdur ER] 60 mg PO QDAY #30 tablet 03/05/18 08/06/19 03/29/18 Rx 60 mg Nitroglycerin [Nitrostat] 0.4 mg SL Q5M PRN #30 tablet 03/05/18 08/06/19 Unknown Rx ALBUTEROL Inhaler(NF) [VENTOLIN 2 puff IH Q4H PRN #1 unit 04/03/18 08/06/19 Unknown Rx Inhaler(NF)] ALBUTEROL NEB's [Proventil 0.083% 2.5 mg IH TID PRN 30 Days neb 04/03/18 08/06/19 Unknown Rx NEBS] Ranolazine ER [Ranexa ER] 500 mg PO BID #60 tablet 04/03/18 08/06/19 Unknown Rx AtorvaSTATin [Lipitor] 20 mg PO QHS 08/06/19 08/06/19 Unknown History Citalopram [Celexa] 20 mg PO QDAY 08/06/19 08/06/19 Unknown History Losartan [Cozaar] 25 mg PO QDAY 08/06/19 08/06/19 Unknown History oxyCODONE /ACETAMINOPHEN [Percocet 1 tab PO Q6HR PRN 08/06/19 08/06/19 Unknown History 5/325] traZODone [Desyrel] 50 mg PO QHS 08/06/19 08/06/19 Unknown History ED Physical Exam - General Limitations: No Limitations - Other Other exam information: GENERAL: The patient is well-developed well-nourished. HENT: Normocephalic. Atraumatic. Patient has moist mucous membranes. EYES: Extraocular motions are intact. NECK: Supple. Trachea is midline. CHEST/LUNGS: Clear to auscultation. There is no respiratory distress noted. Chest pain is not reproducible to palpation of the chest wall. HEART/CARDIOVASCULAR: Irregular with mild tachycardia. ABDOMEN: Abdomen is soft, nontender. Patient has normal bowel sounds. There is no abdominal distention. SKIN: Skin is warm and dry. NEURO: The patient is awake, alert, and oriented. The patient is cooperative. The patient has no focal neurologic deficits. Normal speech. MUSCULOSKELETAL: There is no tenderness or deformity. There is no evidence of acute injury. ED Course Vital Signs 08/06/19 08/06/19 08/06/19 21:13 21:18 21:30 Temperature 98.7 F Pulse Rate 100 H 96 H Respiratory 12 22 Rate Blood Pressure 168/67 Blood Pressure 168/67 [left arm] O2 Sat by Pulse 98 99 98 Oximetry 08/06/19 08/06/19 08/06/19 22:00 22:34 23:00 Temperature Pulse Rate 96 H 105 H 101 H Respiratory 22 14 13 Rate Blood Pressure 168/67 168/67 168/67 Blood Pressure [left arm] O2 Sat by Pulse 99 98 98 Oximetry 08/06/19 08/06/19 08/07/19 23:06 23:30 00:00 Temperature Pulse Rate 89 89 87 Respiratory 21 17 14 Rate Blood Pressure 145/56 145/56 145/56 Blood Pressure [left arm] O2 Sat by Pulse 99 97 100 Oximetry 08/07/19 08/07/19 00:30 01:30 Temperature Pulse Rate 106 H Respiratory 18 Rate Blood Pressure 145/56 152/63 Blood Pressure [left arm] O2 Sat by Pulse 99 99 Oximetry LAMAR score - Lamar Score Age > 65: (1) Yes Aspirin use within the Past 7 Days: (1) Yes 3 or more CAD Risk Factors: (1) Yes 2 or more Angina events in past 24 hrs: (0) No Known CAD with more than 50% Stenosis: (1) Yes Elevated Cardiac Markers: (0) No ST Deviation Greater than 0.5mm: (0) No LAMAR Score: 4 ED Medical Decision Making - Lab Data Result diagrams: 08/06/19 21:33 08/06/19 21:33 - EKG Data -: EKG Interpreted by Me - EKG Data When compared to previous EKG there are: changes noted (Previous EKG shows sinus rhythm, right bundle branch block) Interpretation: other (Atrial fibrillation with rate of 91 bpm, prolonged QTC, PVCs) - Radiology Data Radiology results: report reviewed, image reviewed interpreted by me: Chest x-ray does not show any acute process. There are no pleural effusions, obvious pneumonia and there is no pneumothorax. Nuclear medicine perfusion scan INDICATION: Chest pain with elevated d-dimer TECHNIQUE: A total of 5.0 mCi of technetium 99 MAA injected IV per protocol COMPARISON: Chest radiograph performed earlier today. IMPRESSION: No significant pulmonary perfusion defect identified. - Medical Decision Making This patient presents to the emergency department with the complaint of some acute substernal chest pain and shortness of breath that started about 3 PM this afternoon. EKG shows atrial fibrillation but no ST elevation CT. A chest x-ray was done that does not show any pneumonia, pleural effusions, pneumothorax, or any other acute process. Patient's labs shows an elevated BNP of about 2500, mildly elevated and equivocal d-dimer level, some anemia with a hemoglobin of 7 .4, but the patient has had negative troponins x2 thus far. We were unable to get appropriate access for a CT angiography study so the patient had a nuclear medicine perfusion study that was low probability for a pulmonary embolism. She has been given a few doses of IV analgesia, antiemetic. Patient has a moderate heart and LAMAR score. She continues to have some chest discomfort and has a significant cardiac history. For all these reasons the patient will be admitted to the hospital for further evaluation and treatment and was accepted for admission by the hospitalist, Dr. Silva. Critical Care Time: No Critical care attestation.: If time is entered above; I have spent that time in minutes in the direct care of this critically ill patient, excluding procedure time. ED Disposition Clinical Impression: Acute chest pain Atrial fibrillation Qualifiers: Atrial fibrillation type: unspecified Qualified Code(s): I48.91 - Unspecified atrial fibrillation CAD (coronary artery disease) Qualifiers: Coronary Disease-Associated Artery/Lesion type: unspecified vessel or lesion type [place] vs. transplanted heart: [place] heart Associated angina: angina presence unspecified Qualified Code(s): I25.10 - Atherosclerotic heart disease of [place] coronary artery without angina pectoris Hypertension Qualifiers: Hypertension type: essential hypertension Qualified Code(s): I10 - Essential (primary) hypertension Disposition: -09 OP ADMIT IP TO THIS HOSP Is pt being admited?: Yes Condition: Fair Instructions: Chest Pain (ED), Hypertension (ED) Time of Disposition: 01:37
[2019-08-06 21:53] LABS: Basophils # (Auto) 0.1 K/mm3 (0.0-0.1); Basophils % (Auto) 1.5 % (0.0-1.8); Eosinophils % (Auto) 0.6 % (0.0-4.3); Hematocrit 24.4 % (30.3-42.9); Hemoglobin 7.4 gm/dl (10.1-14.3); Lymphocytes # (Auto) 1.2 K/mm3 (1.2-5.4); Lymphocytes % (Auto) 17.4 % (13.4-35.0); Mean Corpuscular HGB Conc 30 % (30-34); Mean Corpuscular Volume 76 fl (79-97); Monocytes # (Auto) 0.5 K/mm3 (0.0-0.8); Monocytes % (Auto) 7.8 % (0.0-7.3); Platelet Count 444 K/mm3 (140-440); Red Blood Count 3.22 M/mm3 (3.65-5.03); Red Cell Distribution Width 18.4 % (13.2-15.2)
[2019-08-06 22:05] LABS: INR 1.09 (0.87-1.13); Partial Thromboplastin Time 26.2 Sec. (24.2-36.6)
[2019-08-06 22:20] LABS: Alanine Aminotransferase 6 units/L (7-56); Albumin 3.4 g/dL (3.9-5); BUN/Creatinine Ratio 11; Blood Urea Nitrogen 11 mg/dL (7-17); Calcium 9.2 mg/dL (8.4-10.2); Hemolysis Index 54
[2019-08-07] MEDS ORDERED: MORPHINE 4 MG/1 ML INJ IV ONE (01:33)
[2019-08-07] MEDS ORDERED: ONDANSETRON 4 MG/2 ML INJ IV ONE (01:33)
[2019-08-07] MEDS ORDERED: ACETAMINOPHEN 325 MG TAB PO PRN (02:55)
[2019-08-07] MEDS ORDERED: FUROSEMIDE 40 MG/4 ML INJ IV ONE (03:02)
[2019-08-07] MEDS ORDERED: FUROSEMIDE 40 MG/4 ML INJ ONE (03:10)
[2019-08-07] MEDS: MORPHINE 2 MG/1 ML INJ IV PRN ×3 (05:45→21:15)
[2019-08-07] MEDS: NITROGLYCERIN 2% OINT 1 GM TP SCH ×2 (05:48→09:23)
[2019-08-07 06:41] LABS: Creatine Kinase MB 2.8 ng/mL (0.0-4.0)
[2019-08-07] MEDS: HEPARIN 5,000 UNIT/1 ML VIAL SUB-Q SCH ×2 (09:24→21:16)
[2019-08-07] MEDS ORDERED: ASPIRIN 325 MG TAB PO SCH (10:00)
[2019-08-07] MEDS: RANOLAZINE ER 500 MG TAB 12HR PO SCH ×2 (10:50→21:17)
[2019-08-07] MEDS: METOPROLOL TARTRATE 25 MG TAB PO SCH ×2 (10:50→21:15)
[2019-08-07] MEDS: CLOPIDOGREL 75 MG TAB PO SCH (10:50)
[2019-08-07] MEDS: PANTOPRAZOLE 40 MG TAB PO SCH (10:51)
[2019-08-07] MEDS: AMIODARONE 200 MG TAB PO SCH (10:51)
[2019-08-07] MEDS: LOSARTAN 25 MG TAB PO SCH (10:51)
[2019-08-07] MEDS: ONDANSETRON 4 MG/2 ML INJ IV PRN ×2 (10:52→21:15)
[2019-08-07] MEDS ORDERED: ASPIRIN EC 81 MG TAB PO SCH (11:00)
[2019-08-07 11:06] LABS: Calcium 9.5 mg/dL (8.4-10.2)
[2019-08-07] MEDS ORDERED: POTASSIUM CHLORIDE ER 20 MEQ TAB PO ONE (15:54)
[2019-08-07] MEDS ORDERED: SODIUM CHLORIDE 0.9% 500 ML 500 ML ONE (16:11)
[2019-08-07] MEDS ORDERED: SODIUM CHLORIDE 0.9% 500 ML 500 ML IV ONE (16:13)
[2019-08-08] MEDS: MORPHINE 2 MG/1 ML INJ IV PRN ×4 (01:51→19:41)
[2019-08-08 05:58] LABS: Hematocrit 22.8 % (30.3-42.9); Hemoglobin 6.8 gm/dl (10.1-14.3); Mean Corpuscular HGB Conc 30 % (30-34); Mean Corpuscular Volume 77 fl (79-97); Platelet Count 425 K/mm3 (140-440); Red Blood Count 2.98 M/mm3 (3.65-5.03); Red Cell Distribution Width 18.4 % (13.2-15.2)
[2019-08-08 06:23] LABS: Calcium 9.1 mg/dL (8.4-10.2)
[2019-08-08] MEDS: RANOLAZINE ER 500 MG TAB 12HR PO SCH ×2 (09:36→21:24)
[2019-08-08] MEDS: PANTOPRAZOLE 40 MG TAB PO SCH (09:36)
[2019-08-08] MEDS: AMIODARONE 200 MG TAB PO SCH (09:36)
[2019-08-08] MEDS: CLOPIDOGREL 75 MG TAB PO SCH (09:36)
[2019-08-08] MEDS: LOSARTAN 25 MG TAB PO SCH (09:37)
[2019-08-08] MEDS: HEPARIN 5,000 UNIT/1 ML VIAL SUB-Q SCH ×2 (09:37→21:24)
[2019-08-08] MEDS: METOPROLOL TARTRATE 25 MG TAB PO SCH ×2 (09:37→21:24)
[2019-08-08] MEDS: ASPIRIN EC 81 MG TAB PO SCH (09:37)
[2019-08-08] MEDS ORDERED: SODIUM CHLORIDE 0.9% 500 ML 500 ML IV SCH (12:00)
[2019-08-08] MEDS: SODIUM CHLORIDE 0.9% 500 ML 500 ML IV SCH (12:09)
[2019-08-08] MEDS: ONDANSETRON 4 MG/2 ML INJ IV PRN ×2 (13:00→19:41)
[2019-08-09] MEDS: MORPHINE 2 MG/1 ML INJ IV PRN ×4 (02:37→21:19)
[2019-08-09] MEDS: ONDANSETRON 4 MG/2 ML INJ IV PRN ×2 (02:38→10:45)
[2019-08-09 07:56] LABS: Hematocrit 25.7 % (30.3-42.9); Hemoglobin 7.9 gm/dl (10.1-14.3); Mean Corpuscular HGB Conc 31 % (30-34); Mean Corpuscular Volume 77 fl (79-97); Platelet Count 392 K/mm3 (140-440); Red Blood Count 3.34 M/mm3 (3.65-5.03); Red Cell Distribution Width 18.8 % (13.2-15.2)
[2019-08-09 08:13] LABS: Calcium 9.4 mg/dL (8.4-10.2)
[2019-08-09] MEDS: METOPROLOL TARTRATE 25 MG TAB PO SCH ×2 (10:47→22:00)
[2019-08-09] MEDS: RANOLAZINE ER 500 MG TAB 12HR PO SCH ×2 (10:47→21:17)
[2019-08-09] MEDS: LOSARTAN 25 MG TAB PO SCH (10:48)
[2019-08-09] MEDS: ASPIRIN EC 81 MG TAB PO SCH (10:48)
[2019-08-09] MEDS: CLOPIDOGREL 75 MG TAB PO SCH (10:48)
[2019-08-09] MEDS: HEPARIN 5,000 UNIT/1 ML VIAL SUB-Q SCH ×2 (10:48→21:24)
[2019-08-09] MEDS: AMIODARONE 200 MG TAB PO SCH (10:48)
[2019-08-09] MEDS: PANTOPRAZOLE 40 MG TAB PO SCH (10:48)
[2019-08-10] MEDS: MORPHINE 2 MG/1 ML INJ IV PRN ×3 (00:50→14:50)
[2019-08-10] MEDS ORDERED: HEPARIN 10,000 UNITS/10 ML VIAL ONE (08:57)
[2019-08-10] MEDS ORDERED: VERAPAMIL 5 MG/2 ML INJ ONE (08:57)
[2019-08-10] MEDS ORDERED: HEPARIN/NS 5000 UNIT/500ML 1,000 ML IR ONE (08:57)
[2019-08-10] MEDS ORDERED: NITROGLYCERIN SYRINGE 0 ML ONE (08:58)
[2019-08-10] MEDS ORDERED: SODIUM CHLORIDE 0.9% 500 ML 500 ML ONE (09:13)
[2019-08-10] MEDS ORDERED: CLOPIDOGREL 75 MG TAB ONE (09:14)
[2019-08-10] MEDS ORDERED: ASPIRIN EC 81 MG TAB PO ONE (09:14)
[2019-08-10] MEDS: ASPIRIN EC 81 MG TAB PO SCH (09:20)
[2019-08-10] MEDS: SODIUM CHLORIDE 0.9% 500 ML 500 ML IV SCH (09:20)
[2019-08-10] MEDS: LIDOCAINE (2%) 20 MG/1 ML VIAL 20 ML MDV INFILTRATI ONE ×2 (09:21→09:50)
[2019-08-10] MEDS: CLOPIDOGREL 75 MG TAB PO SCH (09:21)
[2019-08-10] MEDS: fentaNYL 100 MCG/2 ML INJ ONE ×2 (09:21→09:50)
[2019-08-10] MEDS: MIDAZOLAM 2 MG/2 ML INJ ONE ×2 (09:21→09:50)
[2019-08-10] MEDS ORDERED: SODIUM CHLORIDE 0.9% 500 ML 500 ML IV SCH (10:00)
[2019-08-10] MEDS ORDERED: hydrALAZINE 20 MG/1 ML INJ IV PRN (11:00)
[2019-08-10] MEDS ORDERED: SODIUM CHLORIDE 0.9% 1000 ML 1,000 ML IV SCH (11:15)
--- NOTE | 2019-08-10 11:18 | Cardiac Catherization Report ---
CARDIAC CATHETERIZATION REPORT REASON FOR PROCEDURE: The patient with multivessel coronary artery disease, complains of recurrent chest pain. DESCRIPTION OF PROCEDURE: The patient was prepped and draped in a sterile fashion after informed consent. The right femoral artery was entered using Seldinger technique followed by placement of a 6-[place] sheath. Selective left and right coronary angiography was performed using #4 left and right Tee catheters. The pigtail catheter was used for left ventricular angiography. The catheters were removed, sheath removed, and hemostasis achieved using an Angio-Seal device. The patient was returned to the postprocedure unit in stable condition. There were no complications. FINDINGS: HEMODYNAMICS: Left ventricular end-diastolic pressure was 35-38, following coronary angiography. Ascending aortic pressure was 176/64. On pullback across the aortic valve, there was a 16 mmHg [id number] gradient, consistent with mild aortic stenosis. CORONARY ANGIOGRAPHY: The left main coronary artery was free of significant disease. The left anterior descending artery contained mild luminal irregularities in its proximal and mid segments. The proximal circumflex contained a stent extending from its ostium. The proximal AV groove stent was patent with only mild in-stent restenosis. A large first obtuse marginal branch originated from within the stented segment of the proximal circumflex. There was mild ostial narrowing of this obtuse marginal in one view, consistent with mild stent (shelter). Otherwise, the obtuse marginal also contained a long stent extending from its proximal to its mid segment. The stent within the obtuse marginal was also patent with mild in-stent restenosis. Another stent was noted in the mid to distal AV groove circumflex leading to a medium sized terminal obtuse marginal. This latter stent was also widely patent. The right coronary artery was a large caliber, dominant vessel. A stent was visible in the proximal right coronary artery, also widely patent with no significant restenosis. Following this, another stent was noted in the mid to distal right coronary artery around the acute margin. This latter stent was also widely patent with no significant restenosis. Otherwise, the rest of the non-stented segments in the right coronary were essentially angiographically normal. The left ventricle was mildly to moderately dilated. There was moderate diffuse left ventricular dysfunction with ejection fraction of 35-40%. CONCLUSION: 1. Mild aortic stenosis with a [id number] transaortic pressure gradient of 16 mmHg. 2. Multivessel coronary artery disease with a patent stent in the proximal and mid segments of the AV groove circumflex, proximal to mid segment of the anterolateral obtuse marginal, proximal and mid segments of the right coronary artery. 3. Otherwise, no significant residual obstructive disease. 4. [id number] left ventricular systolic dysfunction, ejection fraction 35-40%. RECOMMENDATION: Aggressive risk factor modification and medical therapy. Serial echocardiograms for followup of aortic valve disease. [facility]# [id number] [place]/NTS
[2019-08-10] MEDS: HEPARIN 5,000 UNIT/1 ML VIAL SUB-Q SCH (11:43)
[2019-08-10] MEDS: AMIODARONE 200 MG TAB PO SCH (12:40)
[2019-08-10] MEDS: METOPROLOL TARTRATE 25 MG TAB PO SCH (12:40)
[2019-08-10] MEDS: PANTOPRAZOLE 40 MG TAB PO SCH (12:40)
[2019-08-10] MEDS: LOSARTAN 25 MG TAB PO SCH (12:40)
[2019-08-10] MEDS: RANOLAZINE ER 500 MG TAB 12HR PO SCH (12:41)
[2019-08-10 15:34] VITALS: BP 90/40
== END 2019-08-10 19:48 | disposition home or self-care (01) | DRG 286 ==
LOC: ED 20:59 → 4A 08-07 02:04 → INTOOBSV 08-07 02:04 → OBSVTOIN 08-08 12:55
PROVIDERS: ADMIT Internal Medicine; ATTEND Internal Medicine
PROC: 30233N1 Transfusion of Nonautologous Red Blood Cells into Peripheral Vein, Percutaneous Approach (ICD-10-PCS; principal; 2019-08-08)
PROC: 4A023N7 Measurement of Cardiac Sampling and Pressure, Left Heart, Percutaneous Approach (ICD-10-PCS; 2019-08-10)
PROC: B2111ZZ Fluoroscopy of Multiple Coronary Arteries using Low Osmolar Contrast (ICD-10-PCS; 2019-08-10)
PROC: B2151ZZ Fluoroscopy of Left Heart using Low Osmolar Contrast (ICD-10-PCS; 2019-08-10)
DX: I25.119 Atherosclerotic heart disease of native coronary artery with unspecified angina pectoris (principal); I50.33 Acute on chronic diastolic (congestive) heart failure; I48.91 Unspecified atrial fibrillation; I11.0 Hypertensive heart disease with heart failure; E11.9 Type 2 diabetes mellitus without complications; K21.9 Gastro-esophageal reflux disease without esophagitis; G43.909 Migraine, unspecified, not intractable, without status migrainosus; Z96.659 Presence of unspecified artificial knee joint; I48.0 Paroxysmal atrial fibrillation; J45.909 Unspecified asthma, uncomplicated; Z95.5 Presence of coronary angioplasty implant and graft; Z90.49 Acquired absence of other specified parts of digestive tract; Z89.611 Acquired absence of right leg above knee; Z88.2 Allergy status to sulfonamides; I25.2 Old myocardial infarction; Z79.4 Long term (current) use of insulin
CPT/HCPCS: 36415; 71045; 78580; 80048; 80053; 82550; 82553; 82962; 83880; 84484; 85025; 85027; 85379; 85610; 85730; 86850; 86900; 86901; 86920; 93005; 93458; G0378; A9270-GY; A9540; C1760; C1769; C1894; J0360; J1644; J1940; J2250; J2270; J2405; J3010; J7030; J7040; P9016; Q9967